=== PATIENT | female | born 1935 | race Caucasian/White ===

== ENCOUNTER 2018-01-10 22:08 | Inpatient (IN) | payer MEDICARE ==
[~2018-01-10] VITALS: Ht 162.6 cm; Wt 58.4 kg
[~2018-01-10 22:08] MED LIST: ALBU8.5H8 INH; ALPR-624 PO; AMIO200T40 PO; APIX5TAB3 PO; FLUT1DIS4 INH; FURO40TA4 PO; GABA-338 PO; HYDR-3686 PO; LACT1CAP26 PO; LISI-222 PO; METO25TA6 PO; NITR0.4T48 SL; NORCO10T PO; OMEP-84 PO; SPIIN INH; ZOC40T PO
[2018-01-10] MEDS ORDERED: HYDROcodone/acetaminophen 10/325mg tab PO ONE (23:00)
[2018-01-10 23:25] LABS: BASOPHILS # (AUTO) 0.1 X10'3 (0-0.2); BASOPHILS % (AUTO) 0.4 % (0-1); EOSINOPHILS % (AUTO) 0 % (0-6); HEMATOCRIT 29.5 % (35.0-45.0); HEMOGLOBIN 9.6 g/dl (12.0-16.0); LYMPHOCYTES # (AUTO) 0.5 X10'3 (1.1-4.8); LYMPHOCYTES % (AUTO) 2.7 % (21-51); MEAN CORPUSCULAR HEMOGLOBIN 30.8 PG (27.0-31.0); MEAN CORPUSCULAR HGB CONC 32.4 % (33.0-36.5); MEAN CORPUSCULAR VOLUME 94.9 FL (78-98); MEAN PLATELET VOLUME 7.9 FL (7.4-10.4); MONOCYTES # (AUTO) 0.6 X10'3 (0-0.9); MONOCYTES % (AUTO) 3.5 % (2-12); NEUTROPHILS % (AUTO) 93.4 % (42-75); PLATELET COUNT 623 X10'3 (140-440); RED BLOOD COUNT 3.11 X10'6 (4.20-5.60); RED CELL DISTRIBUTION WIDTH 15.2 % (11.5-14.5); WHITE BLOOD COUNT 17.1 X10'3 (4.5-11.0)
[2018-01-10 23:36] LABS: ALANINE AMINOTRANSFERASE 172 U/L (12-78); ALBUMIN 2.9 G/DL (3.4-5.0); ALBUMIN/GLOBULIN RATIO 0.8 (1.1-1.5); ALKALINE PHOSPHATASE 145 IU/L (46-116); ANION GAP 7 (8-16); ASPARTATE AMINO TRANSFERASE 110 U/L (10-37); BILIRUBIN,TOTAL 0.4 MG/DL (0.1-1.0); BLOOD UREA NITROGEN 29 MG/DL (7-18); BUN/CREATININE RATIO 14.9 (6.6-38.0); CALCIUM 9.3 MG/DL (8.5-10.1); CHLORIDE 98 MMOL/L (99-107); CREATININE 1.95 MG/DL (0.40-0.90); GLUCOSE 134 MG/DL (70-104); MAGNESIUM 1.8 MG/DL (1.5-2.4); POTASSIUM 3.3 MMOL/L (3.5-5.1); SODIUM 136 MMOL/L (135-145); TOTAL CARBON DIOXIDE 30.8 MMOL/L (24-32); TOTAL PROTEIN 6.7 G/DL (6.4-8.2); eGFR 25 ML/MIN
[2018-01-10 23:38] LABS: PARTIAL THROMBOPLASTIN TIME 27 SECONDS (22-32); PROTHROMBIN TIME 10.3 SECONDS (9.0-12.0)
[2018-01-11] VITALS (7 sets, daily range): BP systolic 91–121; BP diastolic 30–72
[2018-01-11] MEDS ORDERED: levoFLOXACIN-Levaquin 500mg/D5 100 ML IV ONE (00:10)
[2018-01-11] MEDS ORDERED: normal saline 1000ML IV soln IVB ONE (00:35)
[2018-01-11] MEDS ORDERED: METO-539 PO (00:53)
[2018-01-11] MEDS ORDERED: HYDR-3686 PO (00:53)
[2018-01-11] MEDS ORDERED: NITR1PAT25 TD (00:53)
[2018-01-11] MEDS ORDERED: POTA10CA44 PO (00:53)
[2018-01-11] MEDS ORDERED: DOCU100C41 PO (00:53)
[2018-01-11] MEDS ORDERED: CLOP75TA15 PO (00:53)
[2018-01-11] MEDS ORDERED: GABA-534 PO (00:53)
[2018-01-11] MEDS ORDERED: FERR325T28 PO (00:53)
[2018-01-11 00:55] LABS: TROPONIN I < 0.04 NG/ML (0.0-0.05)
[2018-01-11] MEDS ORDERED: acetaminophen 325mg tablet PO PRN (01:20)
[2018-01-11] MEDS ORDERED: mag hydrox/Alum hydrox/simeth 30ml oral suspension PO PRN ×2 (01:20→12:00)
[2018-01-11] MEDS ORDERED: ondansetron/PF 4mg/2ml inj IV PRN (01:20)
[2018-01-11] MEDS ORDERED: morphine 2 MG/ML inj. syringe IV PRN ×2 (01:20)
[2018-01-11] MEDS ORDERED: magnesium hydroxide 30ml (MOM) UD suspension PO PRN (01:20)
[2018-01-11] MEDS: pantoprazole 40mg Tablet.DR PO SCH (07:45)
[2018-01-11] MEDS: clopidogrel 75mg tablet PO SCH (07:45)
[2018-01-11] MEDS: metoprolol tartrate 12.5mg (1/2 tablet) PO SCH (07:46)
[2018-01-11] MEDS: heparin, porcine 5000 units/ml vial SQ SCH ×2 (07:46→21:32)
[2018-01-11] MEDS: gabapentin 400mg capsule PO SCH ×2 (07:46→16:20)
[2018-01-11] MEDS ORDERED: lisinopril 5mg tablet PO SCH (08:00)
[2018-01-11] MEDS ORDERED: furosemide 40mg tablet PO SCH (08:00)
[2018-01-11] MEDS ORDERED: potassium Cl 20 mEq SR tablet PO SCH (08:00)
[2018-01-11] MEDS ORDERED: atorvastatin 20mg tablet PO SCH (08:00)
[2018-01-11] MEDS ORDERED: amiodarone 200mg tablet PO SCH (08:00)
[2018-01-11] MEDS: nitroGLYCERIN 0.1mg/hour patch TD SCH (08:00)
[2018-01-11 10:17] LABS: BASOPHILS % (AUTO) 0.1 % (0-1); EOSINOPHILS # (AUTO) 0.2 X10'3 (0-0.9); EOSINOPHILS % (AUTO) 2.2 % (0-6); HEMATOCRIT 25.6 % (35.0-45.0); HEMOGLOBIN 8.1 g/dl (12.0-16.0); LYMPHOCYTES # (AUTO) 0.5 X10'3 (1.1-4.8); LYMPHOCYTES % (AUTO) 4.9 % (21-51); MEAN CORPUSCULAR HGB CONC 31.6 % (33.0-36.5); MEAN CORPUSCULAR VOLUME 94.9 FL (78-98); MEAN PLATELET VOLUME 7.9 FL (7.4-10.4); MONOCYTES # (AUTO) 0.5 X10'3 (0-0.9); MONOCYTES % (AUTO) 5.3 % (2-12); NEUTROPHILS # (AUTO) 8.8 X10'3 (1.8-7.7); NEUTROPHILS % (AUTO) 87.5 % (42-75); PLATELET COUNT 501 X10'3 (140-440); RED CELL DISTRIBUTION WIDTH 15.6 % (11.5-14.5); WHITE BLOOD COUNT 10.1 X10'3 (4.5-11.0)
[2018-01-11 10:38] LABS: ALANINE AMINOTRANSFERASE 154 U/L (12-78); ALBUMIN 2.3 G/DL (3.4-5.0); ALBUMIN/GLOBULIN RATIO 0.7 (1.1-1.5); ALKALINE PHOSPHATASE 115 IU/L (46-116); ANION GAP 8 (8-16); ASPARTATE AMINO TRANSFERASE 112 U/L (10-37); BILIRUBIN,TOTAL 0.3 MG/DL (0.1-1.0); BLOOD UREA NITROGEN 27 MG/DL (7-18); BUN/CREATININE RATIO 14.2 (6.6-38.0); CALCIUM 8.7 MG/DL (8.5-10.1); CHLORIDE 101 MMOL/L (99-107); GLUCOSE 110 MG/DL (70-104); POTASSIUM 3.5 MMOL/L (3.5-5.1); SODIUM 138 MMOL/L (135-145); TOTAL CARBON DIOXIDE 29.1 MMOL/L (24-32); TOTAL PROTEIN 5.5 G/DL (6.4-8.2); eGFR 25 ML/MIN
[2018-01-11] MEDS ORDERED: normal saline 500ml IV soln 1,000 ML IV ONE (11:10)
[2018-01-11] MEDS: potassium Cl 20mEq in NS 1,000 ML IV SCH (16:21)
[2018-01-11] MEDS: HYDROcodone/acetaminophen 10/325mg tab PO PRN (17:31)
[2018-01-11] MEDS: ipratropium/albuterol 3ml nebule NEB SCH ×2 (20:17→23:24)
[2018-01-12] VITALS: BP 105/39
[2018-01-12] MEDS: gabapentin 400mg capsule PO SCH ×2 (00:28→08:17)
[2018-01-12] MEDS: levoFLOXACIN-Levaquin 250mg/D5 100 ML IV SCH (02:49)
[2018-01-12] MEDS: ipratropium/albuterol 3ml nebule NEB SCH ×6 (03:39→23:11)
[2018-01-12] MEDS: potassium Cl 20mEq in NS 1,000 ML IV SCH ×3 (04:20→20:57)
[2018-01-12 06:03] LABS: BASOPHILS % (AUTO) 0.1 % (0-1); EOSINOPHILS # (AUTO) 0.2 X10'3 (0-0.9); EOSINOPHILS % (AUTO) 1.7 % (0-6); HEMATOCRIT 26.5 % (35.0-45.0); HEMOGLOBIN 8.4 g/dl (12.0-16.0); LYMPHOCYTES # (AUTO) 0.3 X10'3 (1.1-4.8); LYMPHOCYTES % (AUTO) 3.2 % (21-51); MEAN CORPUSCULAR HEMOGLOBIN 30.1 PG (27.0-31.0); MEAN CORPUSCULAR HGB CONC 31.9 % (33.0-36.5); MEAN CORPUSCULAR VOLUME 94.5 FL (78-98); MEAN PLATELET VOLUME 8.8 FL (7.4-10.4); MONOCYTES # (AUTO) 0.7 X10'3 (0-0.9); MONOCYTES % (AUTO) 6.6 % (2-12); NEUTROPHILS # (AUTO) 9.2 X10'3 (1.8-7.7); NEUTROPHILS % (AUTO) 88.4 % (42-75); PLATELET COUNT 422 X10'3 (140-440); RED CELL DISTRIBUTION WIDTH 15.6 % (11.5-14.5); WHITE BLOOD COUNT 10.4 X10'3 (4.5-11.0)
[2018-01-12 06:31] LABS: ALANINE AMINOTRANSFERASE 245 U/L (12-78); ALBUMIN 2.1 G/DL (3.4-5.0); ALBUMIN/GLOBULIN RATIO 0.6 (1.1-1.5); ALKALINE PHOSPHATASE 124 IU/L (46-116); ANION GAP 9 (8-16); ASPARTATE AMINO TRANSFERASE 217 U/L (10-37); BILIRUBIN,TOTAL 0.2 MG/DL (0.1-1.0); BLOOD UREA NITROGEN 30 MG/DL (7-18); BUN/CREATININE RATIO 14.3 (6.6-38.0); CALCIUM 8.8 MG/DL (8.5-10.1); CHLORIDE 103 MMOL/L (99-107); GLUCOSE 126 MG/DL (70-104); POTASSIUM 3.5 MMOL/L (3.5-5.1); SODIUM 139 MMOL/L (135-145); TOTAL CARBON DIOXIDE 27.3 MMOL/L (24-32); TOTAL PROTEIN 5.4 G/DL (6.4-8.2); TROPONIN I < 0.04 NG/ML (0.0-0.05); eGFR 23 ML/MIN
[2018-01-12 08:00] VITALS: BP 102/39
[2018-01-12] MEDS: nitroGLYCERIN 0.1mg/hour patch TD SCH (08:00)
[2018-01-12] MEDS ORDERED: amiodarone 200mg tablet PO SCH (08:00)
[2018-01-12] MEDS: pantoprazole 40mg Tablet.DR PO SCH (08:17)
[2018-01-12] MEDS: metoprolol tartrate 12.5mg (1/2 tablet) PO SCH (08:17)
[2018-01-12] MEDS: heparin, porcine 5000 units/ml vial SQ SCH ×2 (08:18→20:28)
[2018-01-12] MEDS: clopidogrel 75mg tablet PO SCH (08:18)
[2018-01-12] MEDS: HYDROcodone/acetaminophen 10/325mg tab PO PRN (08:21)
[2018-01-12 08:30] VITALS: BP 73/34
[2018-01-12] MEDS ORDERED: normal saline 500ml IV soln 1,000 ML IV ONE (09:25)
[2018-01-12] MEDS ORDERED: nitroGLYCERIN 0.4mg SUBLingual tab SL PRN (10:30)
[2018-01-12 11:51] VITALS: BP 106/35
[2018-01-12] MEDS: HYDROcodone/acetaminophen 10/325mg tab PO SCH ×2 (13:10→20:28)
[2018-01-12] MEDS ORDERED: gabapentin 300mg capsule PO SCH (16:06)
[2018-01-12 20:00] VITALS: BP 95/35
[2018-01-12] MEDS: carVEDilol 3.125mg tablet PO SCH (20:00)
[2018-01-12] MEDS: docusate sod 250mg capsule PO SCH (20:27)
[2018-01-13 00:20] VITALS: BP 103/35
[2018-01-13] MEDS: ipratropium/albuterol 3ml nebule NEB SCH ×3 (03:00→23:50)
[2018-01-13 05:05] LABS: BASOPHILS % (AUTO) 0.1 % (0-1); EOSINOPHILS % (AUTO) 0 % (0-6); HEMATOCRIT 27.3 % (35.0-45.0); HEMOGLOBIN 8.7 g/dl (12.0-16.0); LYMPHOCYTES # (AUTO) 0.4 X10'3 (1.1-4.8); LYMPHOCYTES % (AUTO) 2.5 % (21-51); MEAN CORPUSCULAR HGB CONC 31.7 % (33.0-36.5); MEAN CORPUSCULAR VOLUME 94.7 FL (78-98); MEAN PLATELET VOLUME 8.6 FL (7.4-10.4); MONOCYTES # (AUTO) 0.9 X10'3 (0-0.9); MONOCYTES % (AUTO) 4.9 % (2-12); NEUTROPHILS % (AUTO) 92.5 % (42-75); PLATELET COUNT 463 X10'3 (140-440); RED BLOOD COUNT 2.89 X10'6 (4.20-5.60); RED CELL DISTRIBUTION WIDTH 16.1 % (11.5-14.5); WHITE BLOOD COUNT 17.3 X10'3 (4.5-11.0)
[2018-01-13 05:27] LABS: ALANINE AMINOTRANSFERASE 256 U/L (12-78); ALBUMIN/GLOBULIN RATIO 0.6 (1.1-1.5); ALKALINE PHOSPHATASE 130 IU/L (46-116); ANION GAP 9 (8-16); ASPARTATE AMINO TRANSFERASE 207 U/L (10-37); BILIRUBIN,TOTAL 0.4 MG/DL (0.1-1.0); BLOOD UREA NITROGEN 22 MG/DL (7-18); BUN/CREATININE RATIO 15.5 (6.6-38.0); CALCIUM 8.7 MG/DL (8.5-10.1); CHLORIDE 104 MMOL/L (99-107); CREATININE 1.42 MG/DL (0.40-0.90); GLUCOSE 111 MG/DL (70-104); POTASSIUM 4.7 MMOL/L (3.5-5.1); SODIUM 138 MMOL/L (135-145); TOTAL CARBON DIOXIDE 25.1 MMOL/L (24-32); TOTAL PROTEIN 5.4 G/DL (6.4-8.2); eGFR 36 ML/MIN
[2018-01-13] MEDS: potassium Cl 20mEq in NS 1,000 ML IV SCH ×2 (06:09→16:52)
[2018-01-13 07:00] VITALS: BP 114/42
[2018-01-13] MEDS: carVEDilol 3.125mg tablet PO SCH ×2 (08:00→21:03)
[2018-01-13] MEDS: pantoprazole 40mg Tablet.DR PO SCH (08:24)
[2018-01-13] MEDS: HYDROcodone/acetaminophen 10/325mg tab PO SCH ×4 (08:25→20:57)
[2018-01-13] MEDS: gabapentin 300mg capsule PO SCH (08:25)
[2018-01-13] MEDS: clopidogrel 75mg tablet PO SCH (08:25)
[2018-01-13] MEDS: heparin, porcine 5000 units/ml vial SQ SCH ×2 (08:26→20:55)
[2018-01-13 09:58] LABS: BASOPHILS % (AUTO) 0 % (0-1); EOSINOPHILS % (AUTO) 0 % (0-6); HEMATOCRIT 27.3 % (35.0-45.0); HEMOGLOBIN 8.7 g/dl (12.0-16.0); LYMPHOCYTES # (AUTO) 0.4 X10'3 (1.1-4.8); MEAN CORPUSCULAR HEMOGLOBIN 30.3 PG (27.0-31.0); MEAN CORPUSCULAR VOLUME 94.9 FL (78-98); MONOCYTES # (AUTO) 0.9 X10'3 (0-0.9); MONOCYTES % (AUTO) 5.2 % (2-12); NEUTROPHILS % (AUTO) 92.8 % (42-75); PLATELET COUNT 484 X10'3 (140-440); RED BLOOD COUNT 2.88 X10'6 (4.20-5.60); WHITE BLOOD COUNT 18.3 X10'3 (4.5-11.0)
[2018-01-13 11:00] VITALS: BP 114/39
[2018-01-13] MEDS: lactose-reduced food (Ensure Enlive) - 237ml bottle PO SCH ×2 (13:00→18:46)
[2018-01-13] MEDS: DOXYCYCLINE 100MG CAPSULE PO SCH ×2 (15:57→17:30)
[2018-01-13 18:50] LABS: CLARITY,URINE CLEAR (Clear); COLOR,URINE YELLOW (Yellow); GLUCOSE, URINE NEGATIVE (Neg); KETONES,URINE NEGATIVE (Neg); LEUKOCYTE ESTERASE ,URINE NEGATIVE (Neg); NITRITES, URINE NEGATIVE (Neg); OCCULT BLOOD,URINE LARGE (Neg); PROTEIN,URINE NEGATIVE (Neg); UROBILINOGEN,URINE 0.2 E.U/dL (0.2-1.0)
[2018-01-13 18:51] LABS: UA COLLECTION TYPE VOIDED
[2018-01-13 19:00] VITALS: BP 103/39
[2018-01-13 19:18] LABS: BACTERIA,URINE NONE SEEN /HPF (Neg); MUCUS STRANDS NONE SEEN /LPF (Neg); SQUAMOUS EPITHELIAL CELL,UR NONE SEEN /LPF (FEW); TRANSITIONAL EPI CELLS,URINE FEW /HPF; WBC,URINE 0-4 /HPF (0-4)
[2018-01-13] MEDS: docusate sod 250mg capsule PO SCH (20:56)
[2018-01-14] VITALS: BP 118/43
[2018-01-14] MEDS: levoFLOXACIN-Levaquin 250mg/D5 100 ML IV SCH (02:26)
[2018-01-14] MEDS: ipratropium/albuterol 3ml nebule NEB SCH ×3 (03:00→11:30)
[2018-01-14 05:40] LABS: ALANINE AMINOTRANSFERASE 175 U/L (12-78); ALBUMIN 1.7 G/DL (3.4-5.0); ALBUMIN/GLOBULIN RATIO 0.5 (1.1-1.5); ALKALINE PHOSPHATASE 114 IU/L (46-116); ANION GAP 7 (8-16); ASPARTATE AMINO TRANSFERASE 75 U/L (10-37); BILIRUBIN,TOTAL 0.2 MG/DL (0.1-1.0); BLOOD UREA NITROGEN 20 MG/DL (7-18); BUN/CREATININE RATIO 18.7 (6.6-38.0); CHLORIDE 108 MMOL/L (99-107); CREATININE 1.07 MG/DL (0.40-0.90); GLUCOSE 110 MG/DL (70-104); POTASSIUM 5.2 MMOL/L (3.5-5.1); SODIUM 140 MMOL/L (135-145); TOTAL CARBON DIOXIDE 25.1 MMOL/L (24-32); TOTAL PROTEIN 5.2 G/DL (6.4-8.2); eGFR 49 ML/MIN
[2018-01-14 05:48] LABS: BASOPHILS % (AUTO) 0 % (0-1); EOSINOPHILS % (AUTO) 0 % (0-6); HEMOGLOBIN 8.1 g/dl (12.0-16.0); LYMPHOCYTES # (AUTO) 0.5 X10'3 (1.1-4.8); LYMPHOCYTES % (AUTO) 3.3 % (21-51); MEAN CORPUSCULAR HEMOGLOBIN 29.8 PG (27.0-31.0); MEAN CORPUSCULAR HGB CONC 31.3 % (33.0-36.5); MEAN PLATELET VOLUME 8.9 FL (7.4-10.4); MONOCYTES # (AUTO) 0.9 X10'3 (0-0.9); MONOCYTES % (AUTO) 6.1 % (2-12); NEUTROPHILS % (AUTO) 90.6 % (42-75); PLATELET COUNT 501 X10'3 (140-440); RED BLOOD COUNT 2.74 X10'6 (4.20-5.60); RED CELL DISTRIBUTION WIDTH 16.1 % (11.5-14.5); WHITE BLOOD COUNT 15.5 X10'3 (4.5-11.0)
[2018-01-14 07:00] VITALS: BP 106/39
[2018-01-14] MEDS: HYDROcodone/acetaminophen 10/325mg tab PO SCH ×2 (07:06→13:54)
[2018-01-14 07:48] LABS: ANISOCYTOSIS 1+; HYPOCHROMASIA 1+; PLATELET ESTIMATE INCREASED; POLYCHROMASIA 1+
[2018-01-14 07:49] LABS: POIKILOCYTOSIS FEW; TARGET CELLS FEW
[2018-01-14] MEDS: heparin, porcine 5000 units/ml vial SQ SCH (08:24)
[2018-01-14] MEDS: gabapentin 300mg capsule PO SCH (08:24)
[2018-01-14] MEDS: clopidogrel 75mg tablet PO SCH (08:24)
[2018-01-14] MEDS: carVEDilol 3.125mg tablet PO SCH (08:24)
[2018-01-14] MEDS: pantoprazole 40mg Tablet.DR PO SCH (08:25)
[2018-01-14] MEDS: DOXYCYCLINE 100MG CAPSULE PO SCH (08:25)
[2018-01-14] MEDS: lactose-reduced food (Ensure Enlive) - 237ml bottle PO SCH ×2 (08:25→13:55)
[2018-01-14] MEDS ORDERED: furosemide 40mg tablet PO SCH (10:20)
[2018-01-14] MEDS ORDERED: sodium bicarbonate (8.4%) 1 mEq/ml syringe IV ONE (11:35)
[2018-01-14 13:07] VITALS: BP 116/37
== END 2018-01-14 14:15 | DRG 682 ==
LOC: ER 22:09 → ED HOLD 01-11 01:19 → SUR 3N 01-11 01:53
PROVIDERS: ADMIT Internal Medicine; ATTEND Internal Medicine
DX: N17.9 Acute kidney failure, unspecified (principal); J18.1 Lobar pneumonia, unspecified organism; J44.1 Chronic obstructive pulmonary disease with (acute) exacerbation; E44.0 Moderate protein-calorie malnutrition; J44.0 Chronic obstructive pulmonary disease with (acute) lower respiratory infection; E78.00 Pure hypercholesterolemia, unspecified; E78.5 Hyperlipidemia, unspecified; E86.0 Dehydration; F41.9 Anxiety disorder, unspecified; I11.0 Hypertensive heart disease with heart failure; I25.10 Atherosclerotic heart disease of native coronary artery without angina pectoris; I35.0 Nonrheumatic aortic (valve) stenosis; Z60.2 Problems related to living alone; I48.0 Paroxysmal atrial fibrillation; I50.9 Heart failure, unspecified; I73.9 Peripheral vascular disease, unspecified; K21.9 Gastro-esophageal reflux disease without esophagitis; Z96.611 Presence of right artificial shoulder joint; G89.29 Other chronic pain; I95.9 Hypotension, unspecified; M25.551 Pain in right hip; R74.0 Nonspecific elevation of levels of transaminase and lactic acid dehydrogenase [LDH]; R94.5 Abnormal results of liver function studies; S32.10XG Unspecified fracture of sacrum, subsequent encounter for fracture with delayed healing; S32.502 Unspecified fracture of left pubis; Z90.710 Acquired absence of both cervix and uterus; Z95.820 Peripheral vascular angioplasty status with implants and grafts; Z88.0 Allergy status to penicillin; Z88.2 Allergy status to sulfonamides; Z88.8 Allergy status to other drugs, medicaments and biological substances; Z79.899 Other long term (current) drug therapy; Z68.22 Body mass index [BMI] 22.0-22.9, adult
CPT/HCPCS: 36415; 71045; 72192; 73501; 80053; 81001; 83735; 83880; 84132; 84145; 84484; 85025; 85610; 85730; 87070; 92616; 93005; 93306; 94640; 94760; 97110; 97162; 97530; 99285; G0378; J1644; J1956; J2405; J7030

== ENCOUNTER 2018-06-20 09:49 | Outpatient (CLI) | payer MEDICARE ==
[~2018-06-20 09:49] MED LIST changes: -ALBU8.5H8 INH; -ALPR-624 PO; -APIX5TAB3 PO; +CLOP75TA15 PO; +DOCU100C41 PO; +FERR325T28 PO; -FLUT1DIS4 INH; -GABA-338 PO; +GABA-534 PO; +METO-539 PO; -METO25TA6 PO; -NITR0.4T48 SL; +NITR1PAT25 TD; -NORCO10T PO; +POTA10CA44 PO; -SPIIN INH
[2018-06-20 10:26] LABS: TOTAL HEMOGLOBIN 9.9 G/dl (12.0-16.0)
[2018-06-20] MEDS ORDERED: albuterol 2.5 MG/3 ML nebule NEB ONE (10:40)
== END 2018-06-20 23:59 | disposition home or self-care (01) ==
LOC: RT 09:49
PROVIDERS: ATTEND Internal Medicine Cardiovascular Disease
DX: R94.2 Abnormal results of pulmonary function studies (principal); I10 Essential (primary) hypertension; J44.9 Chronic obstructive pulmonary disease, unspecified; Z79.899 Other long term (current) drug therapy
CPT/HCPCS: 85018; 94060; 94727; 94729; 94760

== ENCOUNTER 2019-07-19 23:22 | Emergency (ER) | payer MEDICARE ==
[~2019-07-19] VITALS: Ht 162.6 cm; Wt 59.1 kg
[~2019-07-19 23:22] MED LIST changes: -AMIO200T40 PO; +AMIO200T61 PO; +LIDOcaine 1% w/EPI 1:100,000 30ml vial (MDV) ONE
[2019-07-20] MEDS ORDERED: ondansetron/PF 4mg/2ml inj IV ONE ×2 (00:05→02:00)
[2019-07-20] MEDS ORDERED: tranexamic acid 1gm/0.7% sal. 100 ML IV ONE (00:05)
[2019-07-20] MEDS ORDERED: tranexamic acid 100mg/ml inj. IV ONE (00:05)
[2019-07-20] MEDS ORDERED: normal saline 1000ml 1,000 ML IV ONE (00:05)
[2019-07-20] MEDS ORDERED: oxymetazoline 15 ML nasal spray NS ONE (00:10)
[2019-07-20] MEDS ORDERED: tranexamic acid 100mg/ml inj. TP ONE (00:25)
[2019-07-20 00:36] VITALS: BP 165/69
[2019-07-20] MEDS ORDERED: LIDOcaine Viscous 15ml cup MM ONE (01:05)
[2019-07-20] MEDS ORDERED: proCHLORperazine 10 MG/2 ml inj IV ONE (02:25)
[2019-07-20] MEDS ORDERED: CLIN150C8 PO (02:25)
--- NOTE | 2019-07-20 02:47 | NUR ---
CALL TO [facility] [phone], FOR TRANSPORT HOME. NO ANSWER, MESSAGE LEFT.
== END 2019-07-20 04:03 | disposition home or self-care (01) ==
LOC: ER 23:23
DX: R04.0 Epistaxis (principal); I11.0 Hypertensive heart disease with heart failure; I50.9 Heart failure, unspecified; E78.00 Pure hypercholesterolemia, unspecified; J44.9 Chronic obstructive pulmonary disease, unspecified; G89.29 Other chronic pain; F41.9 Anxiety disorder, unspecified; Z90.710 Acquired absence of both cervix and uterus; Z98.890 Other specified postprocedural states; Z72.89 Other problems related to lifestyle; Z60.2 Problems related to living alone; Z88.1 Allergy status to other antibiotic agents; Z88.0 Allergy status to penicillin; Z88.2 Allergy status to sulfonamides; Z79.2 Long term (current) use of antibiotics; Z79.899 Other long term (current) drug therapy
CPT/HCPCS: 30901; 96365; 96375; 99284; J0780; J2405; J7030; 30905

== ENCOUNTER 2019-07-23 11:14 | Emergency (ER) | payer MEDICARE ==
[~2019-07-23] VITALS: Ht 160 cm; Wt 59.1 kg
[~2019-07-23 11:14] MED LIST changes: +CLIN150C8 PO; -LIDOcaine 1% w/EPI 1:100,000 30ml vial (MDV) ONE
[2019-07-23 11:46] VITALS: BP 180/57
--- NOTE | 2019-07-23 11:53 | NUR ---
PATIENT HERE TO HAVE RHINO ROCKET REMOVED FROM LEFT NARIS. HAD BLOODY NOSE ON MONDAY AMIE AND IT WAS PUT IN HERE IN THE ER. NO BLEEDING NOTED AT PRESENT.
== END 2019-07-23 12:12 | disposition home or self-care (01) ==
LOC: ER 11:15
DX: R04.0 Epistaxis (principal); I50.9 Heart failure, unspecified; E78.00 Pure hypercholesterolemia, unspecified; I11.0 Hypertensive heart disease with heart failure; J44.9 Chronic obstructive pulmonary disease, unspecified; G89.29 Other chronic pain; F41.9 Anxiety disorder, unspecified; Z90.710 Acquired absence of both cervix and uterus; Z48.00 Encounter for change or removal of nonsurgical wound dressing; Z98.890 Other specified postprocedural states; Z72.89 Other problems related to lifestyle; Z60.2 Problems related to living alone; Z88.0 Allergy status to penicillin; Z88.2 Allergy status to sulfonamides; Z79.899 Other long term (current) drug therapy
CPT/HCPCS: 99281

== ENCOUNTER 2020-04-01 11:26 | Outpatient (CLI) | payer MEDICARE ==
[~2020-04-01] VITALS: Ht 160 cm; Wt 59.0 kg
[2020-04-01 12:43] LABS: BASOPHILS # (AUTO) 0.1 X10'3 (0-0.2); BASOPHILS % (AUTO) 1.3 % (0-1); EOSINOPHILS % (AUTO) 1.1 % (0-6); HEMATOCRIT 33.1 % (35.0-45.0); LYMPHOCYTES # (AUTO) 0.4 X10'3 (1.1-4.8); LYMPHOCYTES % (AUTO) 10.5 % (21-51); MEAN CORPUSCULAR HEMOGLOBIN 32.5 PG (27.0-31.0); MEAN CORPUSCULAR HGB CONC 33.1 g/dL (33.0-36.5); MEAN CORPUSCULAR VOLUME 98.2 FL (78-98); MEAN PLATELET VOLUME 8.3 FL (7.4-10.4); MONOCYTES # (AUTO) 0.3 X10'3 (0-0.9); MONOCYTES % (AUTO) 8.1 % (2-12); NEUTROPHILS # (AUTO) 3.2 X10'3 (1.8-7.7); PLATELET COUNT 336 X10'3 (140-440); RED BLOOD COUNT 3.37 X10'6 (4.20-5.60); RED CELL DISTRIBUTION WIDTH 13.5 % (11.5-14.5); WHITE BLOOD COUNT 4.1 X10'3 (4.5-11.0)
[2020-04-01 12:52] LABS: PARTIAL THROMBOPLASTIN TIME 26 SECONDS (22-32)
[2020-04-01 12:57] LABS: ALANINE AMINOTRANSFERASE 20 U/L (12-78); ALBUMIN 3.5 G/DL (3.4-5.0); ALKALINE PHOSPHATASE 93 IU/L (46-116); ANION GAP 9 (8-16); ASPARTATE AMINO TRANSFERASE 21 U/L (10-37); BILIRUBIN,TOTAL 0.3 MG/DL (0.1-1.0); BLOOD UREA NITROGEN 20 MG/DL (7-18); CALCIUM 9.4 MG/DL (8.5-10.1); CHLORIDE 102 MMOL/L (99-107); GLUCOSE 101 MG/DL (70-104); POTASSIUM 3.8 MMOL/L (3.5-5.1); SODIUM 140 MMOL/L (135-145); TOTAL CARBON DIOXIDE 29.5 MMOL/L (24-32); TOTAL PROTEIN 6.9 G/DL (6.4-8.2); eGFR 53 ML/MIN
[2020-04-01 13:23] LABS: ABG BASE EXCESS 2.6 mmol/L (-2.0-2.0); ABG HCO3 27.3 mmol/L (22.0-26.0); ABG OXYGEN SATURATION 94.8 % (94-97); ABG PCO2 (T) 42.1 mmHg (32.0-45.0); ABG PO2 (T) 77.1 mmHg (75.0-100.0); ALLEN'S TEST POSITIVE; FCOHb 0.6 % (0.0-3.9); FMetHb 0.1 % (0.0-1.5); FO2Hb 94.1 % (94-97); TOTAL HEMOGLOBIN 11.8 G/dl (12.0-16.0)
[2020-04-01] MEDS ORDERED: albuterol 2.5 MG/3 ML nebule NEB ONE (13:45)
== END 2020-04-01 23:59 | disposition home or self-care (01) ==
LOC: VAS 11:26
PROVIDERS: ATTEND Internal Medicine Cardiovascular Disease
DX: I35.0 Nonrheumatic aortic (valve) stenosis (principal); I65.23 Occlusion and stenosis of bilateral carotid arteries; K57.30 Diverticulosis of large intestine without perforation or abscess without bleeding; I70.0 Atherosclerosis of aorta; K42.9 Umbilical hernia without obstruction or gangrene; M43.8X6 Other specified deforming dorsopathies, lumbar region; I51.7 Cardiomegaly; J98.11 Atelectasis; J43.9 Emphysema, unspecified; E04.1 Nontoxic single thyroid nodule; R94.2 Abnormal results of pulmonary function studies; Z20.822 Contact with and (suspected) exposure to COVID-19
CPT/HCPCS: 36415; 36600; 71275; 74174; 80053; 82803; 85018; 85025; 85610; 85730; 87635; 93880; 94060; 94727; 94729; 94760; C9803; Q9967

== ENCOUNTER 2020-04-13 08:59 | Day surgery (SDC) | payer MEDICARE ==
[2020-04-13] VITALS (11 sets, daily range): BP systolic 108–152; BP diastolic 39–74
[~2020-04-13] VITALS: Ht 160 cm; Wt 60.0 kg
[2020-04-13] MEDS ORDERED: diphenhydrAMINE 25mg capsule PO PRN (09:45)
[2020-04-13] MEDS ORDERED: normal saline 1,000 ML IV SCH ×2 (09:45→15:10)
[2020-04-13 09:54] LABS: BASOPHILS # (AUTO) 0.1 X10'3 (0-0.2); BASOPHILS % (AUTO) 1.3 % (0-1); EOSINOPHILS # (AUTO) 0.1 X10'3 (0-0.9); EOSINOPHILS % (AUTO) 1.8 % (0-6); HEMATOCRIT 30.2 % (35.0-45.0); HEMOGLOBIN 10.1 g/dl (12.0-16.0); LYMPHOCYTES # (AUTO) 0.4 X10'3 (1.1-4.8); MEAN CORPUSCULAR HEMOGLOBIN 33.5 PG (27.0-31.0); MEAN CORPUSCULAR HGB CONC 33.5 g/dL (33.0-36.5); MEAN PLATELET VOLUME 7.7 FL (7.4-10.4); MONOCYTES # (AUTO) 0.4 X10'3 (0-0.9); NEUTROPHILS # (AUTO) 3.5 X10'3 (1.8-7.7); NEUTROPHILS % (AUTO) 77.9 % (42-75); PLATELET COUNT 378 X10'3 (140-440); RED BLOOD COUNT 3.02 X10'6 (4.20-5.60); RED CELL DISTRIBUTION WIDTH 14.2 % (11.5-14.5); WHITE BLOOD COUNT 4.5 X10'3 (4.5-11.0)
[2020-04-13] MEDS ORDERED: ALPR0.5T8 PO (10:01)
[2020-04-13] MEDS ORDERED: AMIO200T36 PO (10:01)
[2020-04-13 10:31] LABS: ALBUMIN 3.3 G/DL (3.4-5.0); ANION GAP 5 (8-16); BLOOD UREA NITROGEN 17 MG/DL (7-18); BUN/CREATININE RATIO 13.5 (6.6-38.0); CHLORIDE 103 MMOL/L (99-107); CREATININE 1.26 MG/DL (0.40-0.90); GLUCOSE 92 MG/DL (70-104); MAGNESIUM 2.1 MG/DL (1.5-2.4); POTASSIUM 3.8 MMOL/L (3.5-5.1); SODIUM 138 MMOL/L (135-145); eGFR 41 ML/MIN
[2020-04-13] MEDS ORDERED: fentaNYL/PF 50MCG/1 ML 2ML syringe ONE (12:59)
[2020-04-13] MEDS ORDERED: LIDOcaine 1% (10mg/ml)w/preservative injection 20ml MDV ONE (12:59)
[2020-04-13] MEDS ORDERED: midazolam 1 mg/ML 2ml injection ONE (12:59)
[2020-04-13] MEDS ORDERED: iohexol 350MG/ML 100ml bottle IV ONE (13:00)
[2020-04-13] MEDS ORDERED: iohexol 350 MG/ML 50ML vial IV ONE (13:00)
[2020-04-13] MEDS ORDERED: heparin 1,000unit/ml 10ml vial 10 ML ONE (14:14)
[2020-04-13] MEDS ORDERED: HYDROcodone/acetaminophen 10/325mg tab PO PRN (15:10)
[2020-04-13] MEDS ORDERED: HYDROcodone/acetaminophen 5mg/325mg tablet PO PRN (15:10)
[2020-04-13] MEDS ORDERED: ondansetron/PF 4mg/2ml inj IV PRN (15:10)
[2020-04-13] MEDS ORDERED: proCHLORperazine 10 MG/2 ml inj IV PRN (15:10)
== END 2020-04-13 20:20 | disposition home or self-care (01) ==
LOC: SSTAY O 08:59
PROVIDERS: ATTEND Internal Medicine Cardiovascular Disease
DX: R94.39 Abnormal result of other cardiovascular function study (principal); I25.10 Atherosclerotic heart disease of native coronary artery without angina pectoris; I35.0 Nonrheumatic aortic (valve) stenosis; I27.20 Pulmonary hypertension, unspecified; D64.9 Anemia, unspecified; J44.9 Chronic obstructive pulmonary disease, unspecified; I10 Essential (primary) hypertension; E78.5 Hyperlipidemia, unspecified; E11.9 Type 2 diabetes mellitus without complications; Z79.899 Other long term (current) drug therapy; Z79.01 Long term (current) use of anticoagulants; Z88.0 Allergy status to penicillin; Z88.2 Allergy status to sulfonamides; Z88.1 Allergy status to other antibiotic agents; Z87.891 Personal history of nicotine dependence; Z82.49 Family history of ischemic heart disease and other diseases of the circulatory system
CPT/HCPCS: 36415; 80048; 83735; 85025; 85610; 93005; 93460; 99152; 99153; C1760; C1769; C1894; J1644; J2001; J2250; J3010; J7030; Q0163; Q9967; A4620; A6258; C1751

== ENCOUNTER 2020-04-20 12:23 | Outpatient (CLI) | payer MEDICARE ==
[~2020-04-20] VITALS: Ht 160 cm; Wt 59.4 kg
[~2020-04-20 12:23] MED LIST changes: +ALPR0.5T8 PO; +AMIO200T36 PO; -AMIO200T61 PO; -CLIN150C8 PO; -HYDR-3686 PO; -LACT1CAP26 PO; -LISI-222 PO; -POTA10CA44 PO
[2020-04-20] MEDS ORDERED: FLUT1BLS4 INH (13:31)
[2020-04-20 13:58] LABS: CLARITY,URINE CLOUDY (Clear); COLOR,URINE YELLOW (Yellow); GLUCOSE, URINE NEGATIVE (Neg); KETONES,URINE NEGATIVE (Neg); LEUKOCYTE ESTERASE ,URINE LARGE (Neg); NITRITES, URINE NEGATIVE (Neg); OCCULT BLOOD,URINE NEGATIVE (Neg); PH,URINE 7.5 (4.8-8.0); PROTEIN,URINE NEGATIVE (Neg); UROBILINOGEN,URINE 0.2 E.U/dL (0.2-1.0)
[2020-04-20 14:00] LABS: UA COLLECTION TYPE CLN CATCH MIDSTREAM
[2020-04-20 14:06] LABS: BASOPHILS # (AUTO) 0.1 X10'3 (0-0.2); BASOPHILS % (AUTO) 0.7 % (0-1); EOSINOPHILS % (AUTO) 0.6 % (0-6); LYMPHOCYTES # (AUTO) 0.4 X10'3 (1.1-4.8); LYMPHOCYTES % (AUTO) 5.4 % (21-51); MEAN CORPUSCULAR HEMOGLOBIN 33.2 PG (27.0-31.0); MEAN CORPUSCULAR HGB CONC 32.9 g/dL (33.0-36.5); MEAN CORPUSCULAR VOLUME 101.2 FL (78-98); MEAN PLATELET VOLUME 8.1 FL (7.4-10.4); MONOCYTES # (AUTO) 0.5 X10'3 (0-0.9); MONOCYTES % (AUTO) 6.2 % (2-12); NEUTROPHILS # (AUTO) 6.9 X10'3 (1.8-7.7); NEUTROPHILS % (AUTO) 87.1 % (42-75); PRE OP HEMATOCRIT 33.1 % (35.0-45.0); PRE OP PLATELET COUNT 408 X10'3 (140-440); RED BLOOD COUNT 3.27 X10'6 (4.20-5.60); RED CELL DISTRIBUTION WIDTH 14.4 % (11.5-14.5)
[2020-04-20 14:09] LABS: PRE OP HEMOGLOBIN 10.9 g/dL (12.0-16.0)
[2020-04-20 14:17] LABS: PRE OP PROTIME 10.3 SECONDS (9.0-12.0)
[2020-04-20 14:19] LABS: ALBUMIN 3.4 G/DL (3.4-5.0); ALKALINE PHOSPHATASE 107 IU/L (46-116); BLOOD UREA NITROGEN 13 MG/DL (7-18); BUN/CREATININE RATIO 11.7 (6.6-38.0); CALCIUM 9.2 MG/DL (8.5-10.1); CHLORIDE 104 MMOL/L (99-107); CREATININE 1.11 MG/DL (0.40-0.90); PRE OP ALT 19 U/L (30-65); PRE OP ANION GAP 9 (8-16); PRE OP AST 15 U/L (10-37); PRE OP BILIRUB, TOTAL 0.4 MG/DL (0.0-1.0); PRE OP GLUCOSE 94 MG/DL (70-104); PRE OP POTASSIUM 3.8 MMOL/L (3.4-5.1); PRE OP SODIUM 142 MMOL/L (135-145); TOTAL CARBON DIOXIDE 29.1 MMOL/L (24-32); TOTAL PROTEIN 6.9 G/DL (6.4-8.2); eGFR 47 ML/MIN
[2020-04-20 14:34] LABS: SQUAMOUS EPITHELIAL CELL,UR FEW /LPF (FEW)
[2020-04-20 14:35] LABS: BACTERIA,URINE 3+ /HPF (Neg); RBC,URINE 0-2 /HPF (0-2); WBC CLUMPS,URINE MANY /HPF (NEGATIVE); WBC,URINE 50-100 /HPF (0-4)
[2020-04-23] MEDS ORDERED: ringers solution, lacted 1,000 ML IV SCH (05:00)
[2020-04-23] MEDS ORDERED: DOCUMENT DATE & TIME OF BETA-BLOCKER PO ONE (05:30)
[2020-04-23] MEDS ORDERED: vancomycin/NS 1 GM ADD-VANTAGE 250 ML IV ONE (05:30)
[2020-04-23] MEDS ORDERED: famotidine 20mg tablet PO ONE (05:30)
[2020-04-23] MEDS ORDERED: aspirin 325mg tablet PO ONE (05:30)
[2020-04-23] MEDS ORDERED: ondansetron/PF 4mg/2ml inj IV PRN (05:30)
== END 2020-04-20 23:59 | disposition home or self-care (01) ==
LOC: PRE-OP 12:23 → EDSTATUS 04-23 08:30
PROVIDERS: ATTEND Internal Medicine Cardiovascular Disease
DX: Z01.812 Encounter for preprocedural laboratory examination (principal); I35.0 Nonrheumatic aortic (valve) stenosis; I51.7 Cardiomegaly; R94.31 Abnormal electrocardiogram [ECG] [EKG]; Z20.822 Contact with and (suspected) exposure to COVID-19
CPT/HCPCS: 36415; 71046; 80053; 81001; 85025; 85610; 85730; 86885; 86900; 86901; 87077; 87081; 87088; 87186; 93005; U0003; 86920

== ENCOUNTER 2020-06-09 10:40 | Outpatient (CLI) | payer MEDICARE ==
[~2020-06-09 10:40] MED LIST changes: +FLUT1BLS4 INH
== END 2020-06-09 23:59 | disposition home or self-care (01) ==
LOC: CARD DIAG 10:40
PROVIDERS: ATTEND Internal Medicine Cardiovascular Disease
DX: I34.0 Nonrheumatic mitral (valve) insufficiency (principal)
CPT/HCPCS: 93308

== ENCOUNTER 2020-09-30 20:21 | Inpatient (IN) | payer MEDICARE ==
[~2020-09-30] VITALS: Ht 162.6 cm; Wt 60.0 kg
[2020-09-30] MEDS ORDERED: LORazepam 2 mg/ml vial IV ONE (20:25)
[2020-09-30] MEDS ORDERED: normal saline 1000ML IV soln IVB ONE (20:25)
[2020-09-30 20:52] LABS: BASOPHILS % (AUTO) 0.6 % (0-1); EOSINOPHILS % (AUTO) 0.5 % (0-6); HEMATOCRIT 30.9 % (35.0-45.0); HEMOGLOBIN 10.2 g/dl (12.0-16.0); LYMPHOCYTES # (AUTO) 0.8 X10'3 (1.1-4.8); LYMPHOCYTES % (AUTO) 11.7 % (21-51); MEAN CORPUSCULAR HEMOGLOBIN 33.6 PG (27.0-31.0); MEAN CORPUSCULAR VOLUME 101.7 FL (78-98); MEAN PLATELET VOLUME 8.2 FL (7.4-10.4); MONOCYTES # (AUTO) 0.5 X10'3 (0-0.9); MONOCYTES % (AUTO) 6.9 % (2-12); NEUTROPHILS # (AUTO) 5.4 X10'3 (1.8-7.7); NEUTROPHILS % (AUTO) 80.3 % (42-75); PLATELET COUNT 345 X10'3 (140-440); RED BLOOD COUNT 3.04 X10'6 (4.20-5.60); RED CELL DISTRIBUTION WIDTH 15.2 % (11.5-14.5); WHITE BLOOD COUNT 6.8 X10'3 (4.5-11.0)
[2020-09-30 21:00] LABS: ALBUMIN 3.7 G/DL (3.4-5.0); ANION GAP 10 (8-16); BILIRUBIN,TOTAL 0.2 MG/DL (0.1-1.0); BLOOD UREA NITROGEN 16 MG/DL (7-18); BUN/CREATININE RATIO 15.2 (6.6-38.0); CALCIUM 8.9 MG/DL (8.5-10.1); CHLORIDE 105 MMOL/L (99-107); CREATININE 1.05 MG/DL (0.40-0.90); GLUCOSE 106 MG/DL (70-104); POTASSIUM 3.6 MMOL/L (3.5-5.1); SODIUM 140 MMOL/L (135-145); TOTAL CARBON DIOXIDE 24.7 MMOL/L (24-32); TOTAL PROTEIN 6.5 G/DL (6.4-8.2); eGFR 50 ML/MIN
[2020-09-30 21:01] LABS: ALANINE AMINOTRANSFERASE 31 U/L (12-78); ALBUMIN/GLOBULIN RATIO 1.3 (1.1-1.5); ALKALINE PHOSPHATASE 118 IU/L (46-116); ASPARTATE AMINO TRANSFERASE 25 U/L (10-37)
[2020-09-30 21:04] LABS: ETHANOL 0.019 GM/DL (0.0-0.010); TROPONIN I < 0.04 NG/ML (0.0-0.05)
[2020-09-30] MEDS ORDERED: magnesium 4gm in 100ml NS 100 ML IV PRN (21:45)
[2020-09-30] MEDS ORDERED: haloperidol 5mg tablet PO PRN (21:45)
[2020-09-30] MEDS ORDERED: magnesium 2GM in 50ml NS 50 ML IV PRN (21:45)
[2020-09-30] MEDS ORDERED: morphine 2 MG/ML inj. syringe IV PRN (21:45)
[2020-09-30] MEDS ORDERED: haloperidol lactate 5mg/ml inj IM PRN (21:45)
[2020-09-30] MEDS ORDERED: LORazepam 2 mg/ml vial IV PRN (21:45)
[2020-09-30] MEDS ORDERED: potassium Cl 40MEQ/1/2NS 520ml 520 ML IV PRN ×2 (21:45)
[2020-09-30] MEDS ORDERED: acetaminophen 325mg tablet PO PRN (21:45)
[2020-09-30] MEDS ORDERED: ondansetron/PF 4mg/2ml inj IV PRN (21:45)
[2020-09-30] MEDS ORDERED: potassium Cl 20 mEq SR tablet PO PRN ×2 (21:45)
[2020-09-30 21:56] LABS: CLARITY,URINE CLEAR (Clear); COLOR,URINE YELLOW (Yellow); GLUCOSE, URINE NEGATIVE (Neg); KETONES,URINE NEGATIVE (Neg); LEUKOCYTE ESTERASE ,URINE NEGATIVE (Neg); NITRITES, URINE NEGATIVE (Neg); OCCULT BLOOD,URINE NEGATIVE (Neg); PH,URINE 5.5 (4.8-8.0); PROTEIN,URINE NEGATIVE (Neg); UROBILINOGEN,URINE 0.2 E.U/dL (0.2-1.0)
[2020-09-30] MEDS: morphine 2 MG/ML inj. syringe IV PRN (22:08)
[2020-09-30 22:18] LABS: UA COLLECTION TYPE FOLEY CATH
--- NOTE | 2020-10-01 00:14 | NUR ---
PT MOVED FROM BE 9 TO BED 15. VSS. AWAITING HOSPITALIST. MED REC COMPLETED.
--- NOTE | 2020-10-01 00:30 | NUR ---
ALLERGY BAND AND LIMITED CODE BAND PLACED. PT IS A&OX4 AND PAIN IS MINIMAL IF NOT MOVING. PLACED ON SUPP 02, 2 L, SATS DROPPING TO 88% ON RA WHEN SLEEPING. AWAITING IPA
[2020-10-01] MEDS: morphine 2 MG/ML inj. syringe IV PRN ×3 (03:16→13:45)
[2020-10-01 03:51] LABS: BASOPHILS % (AUTO) 0.3 % (0-1); EOSINOPHILS % (AUTO) 0 % (0-6); HEMATOCRIT 27.3 % (35.0-45.0); HEMOGLOBIN 8.8 g/dl (12.0-16.0); LYMPHOCYTES # (AUTO) 0.3 X10'3 (1.1-4.8); LYMPHOCYTES % (AUTO) 3.1 % (21-51); MEAN CORPUSCULAR HGB CONC 32.4 g/dL (33.0-36.5); MEAN CORPUSCULAR VOLUME 101.7 FL (78-98); MEAN PLATELET VOLUME 8.2 FL (7.4-10.4); MONOCYTES # (AUTO) 0.7 X10'3 (0-0.9); MONOCYTES % (AUTO) 6.8 % (2-12); NEUTROPHILS # (AUTO) 9.1 X10'3 (1.8-7.7); NEUTROPHILS % (AUTO) 89.8 % (42-75); PLATELET COUNT 283 X10'3 (140-440); RED BLOOD COUNT 2.68 X10'6 (4.20-5.60); RED CELL DISTRIBUTION WIDTH 15.1 % (11.5-14.5); WHITE BLOOD COUNT 10.1 X10'3 (4.5-11.0)
[2020-10-01 04:12] LABS: ALANINE AMINOTRANSFERASE 33 U/L (12-78); ALBUMIN 3.1 G/DL (3.4-5.0); ALBUMIN/GLOBULIN RATIO 1.1 (1.1-1.5); ALKALINE PHOSPHATASE 94 IU/L (46-116); AMYLASE 36 U/L (25-115); ANION GAP 8 (8-16); ASPARTATE AMINO TRANSFERASE 24 U/L (10-37); BILIRUBIN,TOTAL 0.3 MG/DL (0.1-1.0); BLOOD UREA NITROGEN 17 MG/DL (7-18); BUN/CREATININE RATIO 18.1 (6.6-38.0); CHLORIDE 107 MMOL/L (99-107); CREATININE 0.94 MG/DL (0.40-0.90); GLUCOSE 112 MG/DL (70-104); LIPASE < 50 U/L (73-393); MAGNESIUM 1.9 MG/DL (1.5-2.4); PHOSPHORUS 3.9 MG/DL (2.3-4.5); POTASSIUM 3.7 MMOL/L (3.5-5.1); SODIUM 143 MMOL/L (135-145); TOTAL CARBON DIOXIDE 28.3 MMOL/L (24-32); TOTAL PROTEIN 5.8 G/DL (6.4-8.2); eGFR 57 ML/MIN
[2020-10-01] MEDS: ALPRAZolam 0.25mg tablet PO PRN ×2 (04:52→21:58)
[2020-10-01 07:30] VITALS: BP 126/49
--- NOTE | 2020-10-01 07:30 | NUR ---
Received patient from ED, pt in stable condition.
[2020-10-01] MEDS: K and/or MAG REPLACEMENT MC SCH ×2 (09:32→10:51)
[2020-10-01] MEDS: multivitamins, therapeutics tablet PO SCH ×2 (09:39→09:55)
[2020-10-01] MEDS: docusate sod 100mg capsule PO SCH ×2 (09:40→21:57)
[2020-10-01] MEDS: thiamine 100mg tablet PO SCH ×2 (09:40→09:55)
[2020-10-01] MEDS: gabapentin 400mg capsule PO SCH ×2 (09:40→09:53)
[2020-10-01] MEDS: pantoprazole 40mg Tablet.DR PO SCH ×2 (09:40→09:45)
[2020-10-01] MEDS: folic acid 1mg tablet PO SCH ×2 (09:40→09:55)
[2020-10-01] MEDS: amiodarone 200mg tablet PO SCH ×2 (09:40→09:45)
[2020-10-01] MEDS: nitroGLYCERIN 0.1mg/hour patch TD SCH (09:49)
[2020-10-01] MEDS: ferrous sulfate 325mg tablet PO SCH (09:52)
[2020-10-01 14:00] VITALS: BP 137/40
[2020-10-01] MEDS ORDERED: ondansetron 4mg rapidly disintigrating tab PO PRN (15:15)
[2020-10-01] MEDS: HYDROcodone/acetaminophen 10/325mg tab PO PRN ×2 (17:02→21:59)
[2020-10-01 18:00] VITALS: BP 138/44
--- NOTE | 2020-10-01 18:24 | NUR ---
Problems reprioritized. Patient report given MIKE Sarabia questions answered & plan of care reviewed with .
[2020-10-01] MEDS: atorvastatin 20mg tablet PO SCH (21:58)
[2020-10-01] MEDS: enoxaparin 40mg/0.4ml syringe SQ SCH (21:58)
[2020-10-01] MEDS: metoprolol succinate 25mg (24-HOUR) SR. Tablet PO SCH (21:59)
[2020-10-01 22:00] VITALS: BP 129/43
[2020-10-02] VITALS (20 sets, daily range): BP systolic 95–134; BP diastolic 36–76
--- NOTE | 2020-10-02 00:13 | NUR ---
productive cough. taught splinting chest "It hurts to cough". educated on risk factors with not coughing leading to pneumonia. pt verbalized understanding.
--- NOTE | 2020-10-02 00:30 | NUR ---
pt placed on 3L oxygen to keep sats over 90%. shallow breathing when sleeping. will continue to monitor
[2020-10-02] MEDS: HYDROcodone/acetaminophen 10/325mg tab PO PRN ×3 (03:15→20:27)
--- NOTE | 2020-10-02 06:27 | NUR ---
reported to days. noted pt resting w/o distress. anticipate DCP and SS consult today.
--- NOTE | 2020-10-02 06:42 | NUR ---
Patient in room ORTHO 4020. I have received report from MIKE Sarabia and had the opportunity to ask questions and assume patient care.
[2020-10-02 06:57] LABS: BASOPHILS % (AUTO) 0.5 % (0-1); EOSINOPHILS # (AUTO) 0.1 X10'3 (0-0.9); EOSINOPHILS % (AUTO) 0.8 % (0-6); HEMATOCRIT 25.4 % (35.0-45.0); HEMOGLOBIN 8.3 g/dl (12.0-16.0); LYMPHOCYTES # (AUTO) 0.3 X10'3 (1.1-4.8); MEAN CORPUSCULAR HEMOGLOBIN 33.2 PG (27.0-31.0); MEAN CORPUSCULAR HGB CONC 32.8 g/dL (33.0-36.5); MEAN CORPUSCULAR VOLUME 101.3 FL (78-98); MEAN PLATELET VOLUME 8.5 FL (7.4-10.4); MONOCYTES # (AUTO) 0.7 X10'3 (0-0.9); MONOCYTES % (AUTO) 8.2 % (2-12); NEUTROPHILS # (AUTO) 7.8 X10'3 (1.8-7.7); NEUTROPHILS % (AUTO) 87.5 % (42-75); PLATELET COUNT 245 X10'3 (140-440); RED BLOOD COUNT 2.51 X10'6 (4.20-5.60); RED CELL DISTRIBUTION WIDTH 14.8 % (11.5-14.5); WHITE BLOOD COUNT 8.9 X10'3 (4.5-11.0)
[2020-10-02 07:12] LABS: ALANINE AMINOTRANSFERASE 22 U/L (12-78); ALBUMIN 2.6 G/DL (3.4-5.0); ALKALINE PHOSPHATASE 100 IU/L (46-116); AMYLASE 22 U/L (25-115); ANION GAP 6 (8-16); ASPARTATE AMINO TRANSFERASE 17 U/L (10-37); BILIRUBIN,TOTAL 0.3 MG/DL (0.1-1.0); BLOOD UREA NITROGEN 17 MG/DL (7-18); BUN/CREATININE RATIO 16.3 (6.6-38.0); CALCIUM 8.3 MG/DL (8.5-10.1); CHLORIDE 108 MMOL/L (99-107); CREATININE 1.04 MG/DL (0.40-0.90); GLUCOSE 104 MG/DL (70-104); LIPASE < 50 U/L (73-393); MAGNESIUM 2.1 MG/DL (1.5-2.4); PHOSPHORUS 3.9 MG/DL (2.3-4.5); POTASSIUM 3.9 MMOL/L (3.5-5.1); SODIUM 142 MMOL/L (135-145); TOTAL CARBON DIOXIDE 28.2 MMOL/L (24-32); TOTAL PROTEIN 5.3 G/DL (6.4-8.2); eGFR 51 ML/MIN
[2020-10-02] MEDS: K and/or MAG REPLACEMENT MC SCH ×2 (08:00→20:00)
[2020-10-02] MEDS: ferrous sulfate 325mg tablet PO SCH (08:00)
[2020-10-02] MEDS: folic acid 1mg tablet PO SCH (08:00)
[2020-10-02] MEDS: multivitamins, therapeutics tablet PO SCH (08:00)
[2020-10-02] MEDS: gabapentin 400mg capsule PO SCH (08:00)
[2020-10-02] MEDS: docusate sod 100mg capsule PO SCH ×2 (08:00→20:29)
[2020-10-02] MEDS: thiamine 100mg tablet PO SCH (08:00)
[2020-10-02] MEDS: nitroGLYCERIN 0.1mg/hour patch TD SCH (11:14)
[2020-10-02] MEDS ORDERED: sevoflurane 250ml liquid IH ONE (13:48)
[2020-10-02] MEDS ORDERED: fentaNYL/PF 50MCG/1 ML 2ML syringe ONE (13:51)
[2020-10-02] MEDS ORDERED: clindamycin phosphate 150mg/ml inj. ONE (14:08)
[2020-10-02] MEDS ORDERED: propofol inj 20 ML IV ONE (14:36)
[2020-10-02] MEDS ORDERED: ondansetron/PF 4mg/2ml inj ONE (14:36)
[2020-10-02] MEDS ORDERED: ePHEDrine 50MG/ML INJ. ONE (14:36)
[2020-10-02] MEDS ORDERED: BUPIVAcaine 0.5% inj/PF 30 ML ONE (14:36)
[2020-10-02] MEDS ORDERED: rocuronium 10mg/ml inj IV ONE (14:36)
[2020-10-02] MEDS ORDERED: acetaminophen 1,000mg/100ml IV 100 ML IV ONE (14:36)
[2020-10-02] MEDS ORDERED: sugammadex 200mg/2ml injection IV ONE (14:36)
[2020-10-02] MEDS ORDERED: LIDOcaine 2% (20mg/ml) 5ml vial ONE (14:36)
[2020-10-02] MEDS ORDERED: ondansetron/PF 4mg/2ml inj IV PRN (14:40)
[2020-10-02] MEDS ORDERED: ringers solution, lacted 1,000 ML IV SCH (14:40)
[2020-10-02] MEDS ORDERED: HYDROmorphone/PF 0.2 MG/ML SYRINGE IV PRN ×2 (14:40)
[2020-10-02] MEDS ORDERED: morphine 2 MG/ML inj. syringe IV PRN (14:40)
--- NOTE | 2020-10-02 14:50 | NUR ---
Received from OR via , accompanied by Anesthesiologist and report given by Anesthesiolgist. patient waking up, denies pain, v/s wnl, csm intact, left hip wrap dressing cdi, 20g piv to left arm , f/c draining clear yellow urine.
--- NOTE | 2020-10-02 15:40 | NUR ---
patient a&ox4, , denies pain, v/s wnl, csm intact, left hip wrap dressing cdi, 20g piv to left arm , f/c draining clear yellow urine. patient taken to 4020a with all belongings and hooked up to monitors in room and report given to rn who has taken over patient care and patient also placed back on tele and continous pulse ox.
--- NOTE | 2020-10-02 16:04 | NUR ---
Received report from [facility] in recovery. Pt arrived in stable condition. Denies pain at this time. Will continue to monitor.
--- NOTE | 2020-10-02 16:37 | NUR ---
Page Sent PAGER ID: [phone] MESSAGE: [id number] Regarding [id number] Zora Smalls- No Post op fluids ordered. Recommendations?
--- NOTE | 2020-10-02 18:00 | NUR ---
Patient in room ORTHO 4020. I have received report from Magali MCKEON and had the opportunity to ask questions and assume patient care. Addendum: 10/03/20 at 0058 by Sarah Viera RN Amended: Links added.
--- NOTE | 2020-10-02 18:41 | NUR ---
Problems reprioritized. Patient report given,Sarah, RN questions answered & plan of care reviewed with .
--- NOTE | 2020-10-02 20:00 | NUR ---
Missed to check BS for 2000. Pt. aware. Addendum: 10/03/20 at 0111 by Sarah Viera RN Amended: Links added.
--- NOTE | 2020-10-02 20:27 | NUR ---
Pt. awake A & O at this time with c/opain level of 8/10 medicated with prn pain meds s ordered. Repositioned pt. for comfort. Lt hip with drsg with no visible drainage noted; compression wrap in place at this time. F/c draining to gravity. Call light within reach. Addendum: 10/03/20 at 0108 by Sarah Viera RN Amended: Links added.
[2020-10-02] MEDS: enoxaparin 40mg/0.4ml syringe SQ SCH (20:28)
[2020-10-02] MEDS: diphenhydrAMINE 25mg capsule PO PRN (20:29)
[2020-10-02] MEDS: atorvastatin 20mg tablet PO SCH (20:29)
[2020-10-02] MEDS: metoprolol succinate 25mg (24-HOUR) SR. Tablet PO SCH (20:33)
[2020-10-02] MEDS: clindamycin 600mg/D5W 50ml 50 ML IV SCH (20:37)
[2020-10-02] MEDS ORDERED: LORazepam 1 MG tablet PO PRN (21:45)
[2020-10-02] MEDS ORDERED: LORazepam 2 mg/ml vial IV PRN (21:45)
[2020-10-03] VITALS (17 sets, daily range): BP systolic 91–140; BP diastolic 36–76
[2020-10-03] MEDS: HYDROcodone/acetaminophen 10/325mg tab PO PRN ×3 (00:51→22:05)
[2020-10-03] MEDS: normal saline 1000ml 1,000 ML IV SCH ×2 (00:51→15:18)
--- NOTE | 2020-10-03 02:02 | NUR ---
Forgot to check Pt's BS. Addendum: 10/03/20 at 0203 by Sarah Viera RN Amended: Links added.
[2020-10-03] MEDS: clindamycin 600mg/D5W 50ml 50 ML IV SCH ×3 (03:27→16:15)
[2020-10-03] MEDS: diphenhydrAMINE 25mg capsule PO PRN ×2 (04:29→16:14)
[2020-10-03 06:09] LABS: BASOPHILS % (AUTO) 0.6 % (0-1); EOSINOPHILS % (AUTO) 0.3 % (0-6); LYMPHOCYTES # (AUTO) 0.3 X10'3 (1.1-4.8); LYMPHOCYTES % (AUTO) 4.1 % (21-51); MEAN CORPUSCULAR HEMOGLOBIN 33.6 PG (27.0-31.0); MEAN CORPUSCULAR HGB CONC 32.7 g/dL (33.0-36.5); MEAN CORPUSCULAR VOLUME 102.8 FL (78-98); MEAN PLATELET VOLUME 8.6 FL (7.4-10.4); MONOCYTES # (AUTO) 0.8 X10'3 (0-0.9); MONOCYTES % (AUTO) 12.5 % (2-12); NEUTROPHILS # (AUTO) 5.1 X10'3 (1.8-7.7); NEUTROPHILS % (AUTO) 82.5 % (42-75); PLATELET COUNT 228 X10'3 (140-440); RED BLOOD COUNT 2.04 X10'6 (4.20-5.60); RED CELL DISTRIBUTION WIDTH 14.7 % (11.5-14.5); WHITE BLOOD COUNT 6.2 X10'3 (4.5-11.0)
[2020-10-03 06:12] LABS: HEMATOCRIT 20.9 % (35.0-45.0); HEMOGLOBIN 6.8 g/dl (12.0-16.0)
[2020-10-03 06:26] LABS: ALANINE AMINOTRANSFERASE 24 U/L (12-78); ALBUMIN 2.1 G/DL (3.4-5.0); ALBUMIN/GLOBULIN RATIO 0.7 (1.1-1.5); ALKALINE PHOSPHATASE 95 IU/L (46-116); AMYLASE 17 U/L (25-115); ANION GAP 6 (8-16); ASPARTATE AMINO TRANSFERASE 18 U/L (10-37); BILIRUBIN,TOTAL 0.2 MG/DL (0.1-1.0); BLOOD UREA NITROGEN 20 MG/DL (7-18); BUN/CREATININE RATIO 19.2 (6.6-38.0); CALCIUM 8.1 MG/DL (8.5-10.1); CHLORIDE 108 MMOL/L (99-107); CREATININE 1.04 MG/DL (0.40-0.90); GLUCOSE 116 MG/DL (70-104); LIPASE < 50 U/L (73-393); MAGNESIUM 2.1 MG/DL (1.5-2.4); PHOSPHORUS 4.4 MG/DL (2.3-4.5); POTASSIUM 4.2 MMOL/L (3.5-5.1); SODIUM 141 MMOL/L (135-145); TOTAL CARBON DIOXIDE 26.8 MMOL/L (24-32); eGFR 51 ML/MIN
--- NOTE | 2020-10-03 06:32 | NUR ---
notified day MIKE Brandt of critical H/H - called lab value to Dr. Osuna. will "take a look". pt asymptomatic
[2020-10-03] MEDS: K and/or MAG REPLACEMENT MC SCH ×2 (08:00→20:00)
[2020-10-03] MEDS: folic acid 1mg tablet PO SCH (08:12)
[2020-10-03] MEDS: docusate sod 100mg capsule PO SCH ×2 (08:13→20:08)
[2020-10-03] MEDS: gabapentin 400mg capsule PO SCH (08:13)
[2020-10-03] MEDS: thiamine 100mg tablet PO SCH (08:13)
[2020-10-03] MEDS: multivitamins, therapeutics tablet PO SCH (08:13)
[2020-10-03] MEDS: ferrous sulfate 325mg tablet PO SCH (08:13)
[2020-10-03] MEDS: nitroGLYCERIN 0.1mg/hour patch TD SCH (08:13)
[2020-10-03] MEDS: amiodarone 200mg tablet PO SCH (08:13)
[2020-10-03] MEDS: pantoprazole 40mg Tablet.DR PO SCH (08:13)
[2020-10-03] MEDS: metoprolol succinate 25mg (24-HOUR) SR. Tablet PO SCH (20:08)
[2020-10-03] MEDS: atorvastatin 20mg tablet PO SCH (20:08)
[2020-10-03] MEDS: enoxaparin 40mg/0.4ml syringe SQ SCH (23:22)
[2020-10-04] MEDS: diphenhydrAMINE 25mg capsule PO PRN ×2 (01:12→17:53)
[2020-10-04] MEDS: normal saline 1000ml 1,000 ML IV SCH (03:06)
[2020-10-04] MEDS: HYDROcodone/acetaminophen 10/325mg tab PO PRN ×3 (03:09→23:13)
[2020-10-04 06:00] VITALS: BP 118/52
[2020-10-04 06:03] LABS: BASOPHILS % (AUTO) 0.7 % (0-1); EOSINOPHILS # (AUTO) 0.1 X10'3 (0-0.9); HEMATOCRIT 27.6 % (35.0-45.0); HEMOGLOBIN 9.1 g/dl (12.0-16.0); LYMPHOCYTES # (AUTO) 0.3 X10'3 (1.1-4.8); LYMPHOCYTES % (AUTO) 4.5 % (21-51); MEAN CORPUSCULAR HEMOGLOBIN 31.2 PG (27.0-31.0); MEAN CORPUSCULAR HGB CONC 32.8 g/dL (33.0-36.5); MEAN CORPUSCULAR VOLUME 95.1 FL (78-98); MONOCYTES # (AUTO) 0.9 X10'3 (0-0.9); MONOCYTES % (AUTO) 12.2 % (2-12); NEUTROPHILS # (AUTO) 5.7 X10'3 (1.8-7.7); NEUTROPHILS % (AUTO) 81.6 % (42-75); PLATELET COUNT 230 X10'3 (140-440); RED BLOOD COUNT 2.91 X10'6 (4.20-5.60); RED CELL DISTRIBUTION WIDTH 19.6 % (11.5-14.5)
[2020-10-04 06:27] LABS: ALANINE AMINOTRANSFERASE 20 U/L (12-78); ALBUMIN 1.9 G/DL (3.4-5.0); ALBUMIN/GLOBULIN RATIO 0.6 (1.1-1.5); ALKALINE PHOSPHATASE 84 IU/L (46-116); AMYLASE 17 U/L (25-115); ANION GAP 6 (8-16); ASPARTATE AMINO TRANSFERASE 20 U/L (10-37); BILIRUBIN,TOTAL 0.7 MG/DL (0.1-1.0); BLOOD UREA NITROGEN 16 MG/DL (7-18); BUN/CREATININE RATIO 16.8 (6.6-38.0); CHLORIDE 110 MMOL/L (99-107); CREATININE 0.95 MG/DL (0.40-0.90); GLUCOSE 101 MG/DL (70-104); LIPASE < 50 U/L (73-393); MAGNESIUM 2.2 MG/DL (1.5-2.4); PHOSPHORUS 2.5 MG/DL (2.3-4.5); POTASSIUM 4.4 MMOL/L (3.5-5.1); SODIUM 144 MMOL/L (135-145); TOTAL CARBON DIOXIDE 27.6 MMOL/L (24-32); TOTAL PROTEIN 4.9 G/DL (6.4-8.2); eGFR 56 ML/MIN
--- NOTE | 2020-10-04 06:27 | NUR ---
Patient in room ORTHO 4009. I have received report from Virginia RN and had the opportunity to ask questions and assume patient care.
[2020-10-04 07:04] LABS: ANISOCYTOSIS 2+; PLATELET ESTIMATE NORMAL; POLYCHROMASIA FEW; TEAR DROP CELLS 1+
[2020-10-04 07:05] LABS: STOMATOCYTES FEW
[2020-10-04] MEDS: pantoprazole 40mg Tablet.DR PO SCH (07:39)
[2020-10-04] MEDS: ferrous sulfate 325mg tablet PO SCH (07:40)
[2020-10-04] MEDS: folic acid 1mg tablet PO SCH (07:40)
[2020-10-04] MEDS: multivitamins, therapeutics tablet PO SCH (07:40)
[2020-10-04] MEDS: thiamine 100mg tablet PO SCH (07:40)
[2020-10-04] MEDS: gabapentin 400mg capsule PO SCH (07:40)
[2020-10-04] MEDS: docusate sod 100mg capsule PO SCH ×2 (07:40→19:40)
[2020-10-04] MEDS: amiodarone 200mg tablet PO SCH (07:41)
[2020-10-04] MEDS: nitroGLYCERIN 0.1mg/hour patch TD SCH (07:41)
[2020-10-04] MEDS: K and/or MAG REPLACEMENT MC SCH ×2 (08:00→20:00)
[2020-10-04 10:00] VITALS: BP 141/51
[2020-10-04] MEDS ORDERED: furosemide 40mg/4ml inj IV ONE (10:30)
[2020-10-04 18:20] VITALS: BP 153/55
--- NOTE | 2020-10-04 18:35 | NUR ---
Problems reprioritized. Patient report given, questions answered & plan of care reviewed with Uday MCKEON.
[2020-10-04] MEDS: enoxaparin 40mg/0.4ml syringe SQ SCH (19:40)
[2020-10-04] MEDS: ALPRAZolam 0.25mg tablet PO PRN (19:40)
[2020-10-04] MEDS: atorvastatin 20mg tablet PO SCH (19:42)
[2020-10-04] MEDS: metoprolol succinate 25mg (24-HOUR) SR. Tablet PO SCH (19:43)
[2020-10-04] MEDS ORDERED: LORazepam 1 MG tablet PO PRN (21:45)
[2020-10-04] MEDS ORDERED: LORazepam 2 mg/ml vial IV PRN (21:45)
[2020-10-04 22:00] VITALS: BP 151/49
[2020-10-05] MEDS: diphenhydrAMINE 25mg capsule PO PRN ×2 (05:04→19:47)
[2020-10-05] MEDS: HYDROcodone/acetaminophen 10/325mg tab PO PRN ×2 (05:04→19:48)
--- NOTE | 2020-10-05 05:59 | NUR ---
reported to days. noted pt resting. encouraged to work hard with PT and not to "refuse" PT. verbalized understanding.
[2020-10-05 06:00] VITALS: BP 165/57
--- NOTE | 2020-10-05 06:16 | NUR ---
Patient in room ORTHO 4009. I have received report from rufina james and had the opportunity to ask questions and assume patient care.
[2020-10-05 06:45] LABS: BASOPHILS # (AUTO) 0.1 X10'3 (0-0.2); BASOPHILS % (AUTO) 0.8 % (0-1); EOSINOPHILS # (AUTO) 0.1 X10'3 (0-0.9); EOSINOPHILS % (AUTO) 1.4 % (0-6); HEMATOCRIT 27.6 % (35.0-45.0); LYMPHOCYTES # (AUTO) 0.3 X10'3 (1.1-4.8); MEAN CORPUSCULAR HEMOGLOBIN 30.9 PG (27.0-31.0); MEAN CORPUSCULAR HGB CONC 32.8 g/dL (33.0-36.5); MEAN CORPUSCULAR VOLUME 94.2 FL (78-98); MEAN PLATELET VOLUME 7.8 FL (7.4-10.4); MONOCYTES # (AUTO) 0.8 X10'3 (0-0.9); MONOCYTES % (AUTO) 11.5 % (2-12); NEUTROPHILS # (AUTO) 5.6 X10'3 (1.8-7.7); NEUTROPHILS % (AUTO) 81.3 % (42-75); PLATELET COUNT 279 X10'3 (140-440); RED BLOOD COUNT 2.93 X10'6 (4.20-5.60); RED CELL DISTRIBUTION WIDTH 18.5 % (11.5-14.5); WHITE BLOOD COUNT 6.8 X10'3 (4.5-11.0)
[2020-10-05 07:06] LABS: ALANINE AMINOTRANSFERASE 18 U/L (12-78); ALBUMIN 1.8 G/DL (3.4-5.0); ALBUMIN/GLOBULIN RATIO 0.5 (1.1-1.5); ALKALINE PHOSPHATASE 96 IU/L (46-116); AMYLASE 19 U/L (25-115); ANION GAP 5 (8-16); ASPARTATE AMINO TRANSFERASE 16 U/L (10-37); BILIRUBIN,TOTAL 0.5 MG/DL (0.1-1.0); BLOOD UREA NITROGEN 12 MG/DL (7-18); BUN/CREATININE RATIO 14.5 (6.6-38.0); CALCIUM 8.2 MG/DL (8.5-10.1); CHLORIDE 108 MMOL/L (99-107); CREATININE 0.83 MG/DL (0.40-0.90); GLUCOSE 108 MG/DL (70-104); PHOSPHORUS 2.7 MG/DL (2.3-4.5); POTASSIUM 3.8 MMOL/L (3.5-5.1); SODIUM 141 MMOL/L (135-145); TOTAL CARBON DIOXIDE 27.6 MMOL/L (24-32); TOTAL PROTEIN 5.1 G/DL (6.4-8.2); eGFR 66 ML/MIN
[2020-10-05 07:08] LABS: LIPASE < 50 U/L (73-393)
[2020-10-05] MEDS: K and/or MAG REPLACEMENT MC SCH ×2 (08:00→19:55)
[2020-10-05] MEDS: folic acid 1mg tablet PO SCH (08:08)
[2020-10-05] MEDS: ferrous sulfate 325mg tablet PO SCH (08:09)
[2020-10-05] MEDS: pantoprazole 40mg Tablet.DR PO SCH (08:09)
[2020-10-05] MEDS: multivitamins, therapeutics tablet PO SCH (08:09)
[2020-10-05] MEDS: gabapentin 400mg capsule PO SCH (08:09)
[2020-10-05] MEDS: thiamine 100mg tablet PO SCH (08:09)
[2020-10-05] MEDS: docusate sod 100mg capsule PO SCH ×2 (08:09→19:47)
[2020-10-05] MEDS: amiodarone 200mg tablet PO SCH (08:10)
[2020-10-05] MEDS: nitroGLYCERIN 0.1mg/hour patch TD SCH (08:10)
[2020-10-05 10:00] VITALS: BP 150/50
--- NOTE | 2020-10-05 11:35 | NUR ---
Page Sent PAGER ID: [phone] MESSAGE: [phone] Serina, pt has home inhaler trelegy. pharmacy needs it ot be discontinued pt is unable to bring med in. may I discontinue? andre [phone]
--- NOTE | 2020-10-05 13:41 | NUR ---
Page Sent PAGER ID: [phone] MESSAGE: [phone] Serina. pt hasn't had a bowel movement since the 10/01. can I order milk of mag. also she hasn't been on her Plavix since surgery 10/02. andre [phone]
[2020-10-05] MEDS ORDERED: magnesium hydroxide 30ml (MOM) UD suspension PO PRN (14:20)
[2020-10-05] MEDS: clopidogrel 75mg tablet PO SCH (14:31)
--- NOTE | 2020-10-05 16:18 | NUR ---
Initial: Pt admit DX L hip fx s/p fall, chronic alcoholism, and HTN per EMR. Pt PO 25% meals since lunch 10/03 w/ 0% prior intake this admit though was NPO for OR 10/02 per EMR. Not meeting needs. Pt seen by RD; pt reports not real food preferences at this time simply decreased appetite r/t pain though is drinking liquids. RD recommends Ensure Enlive TIDWM for additional protein/kcals post-op; MD notified. Noted LBM 09/30 5 days constipation likely also impacting PO intake; receiving routine colace and PRN MoM this AM. Pt reports does not feel discomfort but knows she will need "to go" in the future. Pt declines prune juice or foods to assist w/ BM at this time. RD encouraged pt to report food preferences this admit to optimize PO intake and recovery. Receiving routine thiamin, folic, MVI for etoh hx. Will continue to monitor for additional protein/kcal needs this admit. Rec: 1. liberalize to regular diet given age/PO hx; encourage PO 2. Ensure Enlive TIDWM for additional protein/kcals; pending MD verification in EMR 3. routine bowel care; 5 days constipation 4. weekly scaled wts Addendum: 10/05/20 at [address] Amended: Links added.
[2020-10-05 18:00] VITALS: BP 142/76
[2020-10-05] MEDS ORDERED: lactose-reduced food (Ensure Enlive) - 237ml bottle PO SCH (18:00)
--- NOTE | 2020-10-05 18:38 | NUR ---
Problems reprioritized. Patient report given, questions answered & plan of care reviewed with Harshad james.
[2020-10-05] MEDS: enoxaparin 40mg/0.4ml syringe SQ SCH (19:46)
[2020-10-05] MEDS: atorvastatin 20mg tablet PO SCH (19:47)
[2020-10-05] MEDS: metoprolol succinate 25mg (24-HOUR) SR. Tablet PO SCH (19:47)
--- NOTE | 2020-10-05 21:06 | NUR ---
Dr. Pike at this time re pt inhalers she is asking about.
[2020-10-05 22:00] VITALS: BP 130/57
[2020-10-05] MEDS: ALPRAZolam 0.25mg tablet PO PRN (22:08)
[2020-10-05] MEDS: ipratropium/albuterol 3ml nebule NEB PRN (23:57)
[2020-10-06] MEDS: diphenhydrAMINE 25mg capsule PO PRN (04:36)
[2020-10-06] MEDS: HYDROcodone/acetaminophen 10/325mg tab PO PRN ×3 (04:36→15:27)
--- NOTE | 2020-10-06 04:50 | NUR ---
attempted to void on bedpan. unable. pt states "I don't have the breath to try to get up right now. it stole all my breath last time" re-scanned bladder and found 325ml. will continue to monitor.
[2020-10-06] MEDS: ipratropium/albuterol 3ml nebule NEB PRN (05:16)
[2020-10-06 06:00] VITALS: BP 127/50
--- NOTE | 2020-10-06 06:15 | NUR ---
received report from jacob rivera
[2020-10-06] MEDS: K and/or MAG REPLACEMENT MC SCH (08:00)
[2020-10-06] MEDS: gabapentin 400mg capsule PO SCH (08:18)
[2020-10-06] MEDS: thiamine 100mg tablet PO SCH (08:18)
[2020-10-06] MEDS: clopidogrel 75mg tablet PO SCH (08:18)
[2020-10-06] MEDS: multivitamins, therapeutics tablet PO SCH (08:18)
[2020-10-06] MEDS: ferrous sulfate 325mg tablet PO SCH (08:19)
[2020-10-06] MEDS: amiodarone 200mg tablet PO SCH (08:19)
[2020-10-06] MEDS: folic acid 1mg tablet PO SCH (08:20)
[2020-10-06] MEDS: docusate sod 100mg capsule PO SCH (08:20)
[2020-10-06] MEDS: pantoprazole 40mg Tablet.DR PO SCH (08:21)
[2020-10-06] MEDS: nitroGLYCERIN 0.1mg/hour patch TD SCH (08:29)
[2020-10-06] MEDS ORDERED: IPRA3AMP9 NEB (09:47)
--- NOTE | 2020-10-06 16:00 | NUR ---
pt d/c on [place] with all belongings accompanied by [facility] personnel to go to [facility]
== END 2020-10-06 15:45 | DRG 481 ==
LOC: ER 20:22 → ED HOLD 21:47 → ORTHO 4S 10-01 07:32
PROVIDERS: ADMIT Family Medicine; ATTEND Family Medicine
PROC: 0QH736Z Insertion of Intramedullary Internal Fixation Device into Left Upper Femur, Percutaneous Approach (ICD-10-PCS; principal; 2020-10-02 13:48)
PROC: 30233N1 Transfusion of Nonautologous Red Blood Cells into Peripheral Vein, Percutaneous Approach (ICD-10-PCS; 2020-10-03)
DX: S72.142A Displaced intertrochanteric fracture of left femur, initial encounter for closed fracture (principal); D62 Acute posthemorrhagic anemia; J44.9 Chronic obstructive pulmonary disease, unspecified; I73.9 Peripheral vascular disease, unspecified; I48.0 Paroxysmal atrial fibrillation; I35.0 Nonrheumatic aortic (valve) stenosis; E78.00 Pure hypercholesterolemia, unspecified; E78.5 Hyperlipidemia, unspecified; F10.229 Alcohol dependence with intoxication, unspecified; D50.9 Iron deficiency anemia, unspecified; F41.9 Anxiety disorder, unspecified; I11.0 Hypertensive heart disease with heart failure; W01.0XXA Fall on same level from slipping, tripping and stumbling without subsequent striking against object, initial encounter; Z20.822 Contact with and (suspected) exposure to COVID-19; Z96.611 Presence of right artificial shoulder joint; G62.9 Polyneuropathy, unspecified; Z60.2 Problems related to living alone; G89.29 Other chronic pain; K21.9 Gastro-esophageal reflux disease without esophagitis; M19.90 Unspecified osteoarthritis, unspecified site; R68.2 Dry mouth, unspecified; I25.10 Atherosclerotic heart disease of native coronary artery without angina pectoris; I50.9 Heart failure, unspecified; Z79.02 Long term (current) use of antithrombotics/antiplatelets; Z87.891 Personal history of nicotine dependence; Z90.710 Acquired absence of both cervix and uterus; Y93.89 Activity, other specified; Y92.090 Kitchen in other non-institutional residence as the place of occurrence of the external cause; Y99.8 Other external cause status; Z88.0 Allergy status to penicillin; Z88.2 Allergy status to sulfonamides; Z88.8 Allergy status to other drugs, medicaments and biological substances; Z79.899 Other long term (current) drug therapy; Z82.49 Family history of ischemic heart disease and other diseases of the circulatory system
CPT/HCPCS: 36415; 36430; 70450; 71045; 72125; 73502; 73600; 76000; 80053; 80320; 81003; 82150; 82948; 83690; 83735; 84100; 84484; 85008; 85025; 85610; 86885; 86900; 86901; 86920; 87081; 87635; 93005; 94640; 94760; 97110; 97162; 97530; 99285; A4215; A4618; A6449; A7000; C1713; C9399; G0378; J0131; J1650; J1940; J2001; J2270; J2405; J2704; J3010; J3490; J7030; J7120; P9016; Q0163

== ENCOUNTER 2022-07-11 13:06 | Inpatient (IN) | payer MEDICARE ==
[~2022-07-11] VITALS: Ht 160 cm; Wt 60.0 kg
[~2022-07-11 13:06] MED LIST changes: +ALB0.5UD IH; +ATR0.5NEB IH; -FERR325T28 PO; +FURO-150 PO; -FURO40TA4 PO; -GABA-534 PO; +IPRA3AMP9 NEB; +PREG150C46 PO; +SENN1TAB33 PO; -ZOC40T PO
--- NOTE | 2022-07-11 13:50 | NUR ---
sbar pt condition to DR BURRIS recieved verbal order for x ray of hip and femur.
--- NOTE | 2022-07-11 14:08 | NUR ---
pt requesting bedpan, due to potiental hip fx, purewick was placed.
[2022-07-11 15:41] LABS: BASOPHILS % (AUTO) 0.2 % (0-1); EOSINOPHILS % (AUTO) 0 % (0-6); HEMATOCRIT 28.5 % (35.0-45.0); HEMOGLOBIN 8.8 g/dl (12.0-16.0); LYMPHOCYTES # (AUTO) 0.2 X10'3 (1.1-4.8); LYMPHOCYTES % (AUTO) 1.3 % (21-51); MEAN CORPUSCULAR HEMOGLOBIN 23.9 PG (27.0-31.0); MEAN CORPUSCULAR HGB CONC 30.7 g/dL (33.0-36.5); MEAN CORPUSCULAR VOLUME 77.8 FL (78-98); MEAN PLATELET VOLUME 9.8 FL (7.4-10.4); MONOCYTES # (AUTO) 0.3 X10'3 (0-0.9); MONOCYTES % (AUTO) 2.4 % (2-12); NEUTROPHILS # (AUTO) 11.4 X10'3 (1.8-7.7); NEUTROPHILS % (AUTO) 96.1 % (42-75); PLATELET COUNT 280 X10'3 (140-440); RED BLOOD COUNT 3.66 X10'6 (4.20-5.60); WHITE BLOOD COUNT 11.9 X10'3 (4.5-11.0)
[2022-07-11 16:00] LABS: ALANINE AMINOTRANSFERASE 32 U/L (12-78); ALBUMIN 2.8 G/DL (3.4-5.0); ALBUMIN/GLOBULIN RATIO 0.8 (1.1-1.5); ALKALINE PHOSPHATASE 58 IU/L (46-116); ANION GAP 4 (8-16); ASPARTATE AMINO TRANSFERASE 17 U/L (10-37); BILIRUBIN,TOTAL 0.3 MG/DL (0.1-1.0); BLOOD UREA NITROGEN 37 MG/DL (7-18); BUN/CREATININE RATIO 28.2 (10.0-20.0); CALCIUM 8.8 MG/DL (8.5-10.1); CHLORIDE 106 MMOL/L (99-107); CREATININE 1.31 MG/DL (0.40-0.90); GLUCOSE 107 MG/DL (70-104); POTASSIUM 4.1 MMOL/L (3.5-5.1); SODIUM 142 MMOL/L (135-145); TOTAL PROTEIN 6.1 G/DL (6.4-8.2); eGFR 39 ML/MIN
[2022-07-11 16:09] LABS: CLARITY,URINE SLIGHTLY CLOUDY (Clear); COLOR,URINE STRAW (Yellow); GLUCOSE, URINE NEGATIVE (Neg); KETONES,URINE NEGATIVE (Neg); LEUKOCYTE ESTERASE ,URINE TRACE (Neg); NITRITES, URINE POSITIVE (Neg); OCCULT BLOOD,URINE NEGATIVE (Neg); PROTEIN,URINE NEGATIVE (Neg); UA COLLECTION TYPE CLN CATCH MIDSTREAM; UROBILINOGEN,URINE 0.2 E.U/dL (0.2-1.0)
[2022-07-11 16:22] LABS: PLATELET ESTIMATE NORMAL
[2022-07-11 16:23] LABS: ANISOCYTOSIS 2+; MICROCYTOSIS 1+; POIKILOCYTOSIS 1+
[2022-07-11 17:00] LABS: BACTERIA,URINE 2+ /HPF (Neg); RBC,URINE NONE SEEN /HPF (0-2); SQUAMOUS EPITHELIAL CELL,UR NONE SEEN /LPF (FEW); WBC,URINE 0-4 /HPF (0-4)
[2022-07-11] MEDS ORDERED: levoFLOXACIN-Levaquin 500mg/D5 100 ML IV ONE (17:20)
[2022-07-11] MEDS ORDERED: METO-395 PO (17:32)
[2022-07-11] MEDS ORDERED: TRAM50TA2 PO (17:32)
[2022-07-11] MEDS ORDERED: PRED10TA PO (17:36)
[2022-07-11] MEDS ORDERED: OMEP20CA16 PO (17:36)
[2022-07-11] MEDS ORDERED: NITR1PAT25 TD (17:36)
[2022-07-11] MEDS ORDERED: SIMV-45 PO (17:36)
[2022-07-11] MEDS ORDERED: PREG150C PO (17:36)
[2022-07-11] MEDS ORDERED: morphine 4 MG/ML inj SYRINge IV ONE (17:55)
[2022-07-11] MEDS ORDERED: ondansetron/PF 4mg/2ml inj IV ONE (17:55)
[2022-07-11] MEDS ORDERED: ondansetron/PF 4mg/2ml inj IV PRN (18:10)
[2022-07-11] MEDS ORDERED: morphine 2 MG/ML inj. syringe IV PRN (18:10)
[2022-07-11] MEDS ORDERED: potassium Cl 40MEQ/1/2NS 520ml 520 ML IV PRN (18:10)
[2022-07-11] MEDS ORDERED: magnesium 2GM in 50ml NS 50 ML IV PRN (18:10)
[2022-07-11] MEDS ORDERED: magnesium 4gm in 100ml NS 100 ML IV PRN (18:10)
[2022-07-11] MEDS ORDERED: potassium Cl 20 mEq SR tablet PO PRN ×2 (18:10)
[2022-07-11] MEDS ORDERED: PERFLUTREN PROTEIN-A MICROSPHR (Optison) 0.22 MG/ML 3ML VIAL IV ONE (18:30)
[2022-07-11] MEDS: K and/or MAG REPLACEMENT MC SCH (20:00)
[2022-07-11] MEDS: ALPRAZolam 0.5mg tablet PO SCH (20:31)
[2022-07-11] MEDS: clindamycin 600mg/D5W 50ml 50 ML IV SCH (20:33)
[2022-07-11] MEDS: pregabalin 75mg capsule PO SCH (20:33)
[2022-07-11] MEDS: docusate sod 100mg capsule PO SCH (20:34)
[2022-07-11] MEDS: atorvastatin 20mg tablet PO SCH (20:34)
[2022-07-11] MEDS: prednisone 10mg tablet PO SCH (20:34)
[2022-07-11] MEDS: furosemide 20 MG/2 ML vial IV SCH (20:34)
[2022-07-11] MEDS: morphine 2 MG/ML inj. syringe IV PRN (22:27)
[2022-07-12] MEDS: heparin, porcine 5000 units/ml vial SQ SCH ×3 (01:06→16:59)
--- NOTE | 2022-07-12 01:16 | NUR ---
PATIENT PLACED ON A ORTHO BED WITH TRAPEZE NO NEEDS AT THIS TIME
[2022-07-12] MEDS: clindamycin 600mg/D5W 50ml 50 ML IV SCH ×4 (02:21→21:07)
--- NOTE | 2022-07-12 07:05 | NUR ---
attempted report, RN will call back
[2022-07-12 07:41] LABS: BASOPHILS % (AUTO) 0.2 % (0-1); EOSINOPHILS % (AUTO) 0 % (0-6); HEMATOCRIT 23.6 % (35.0-45.0); HEMOGLOBIN 7.3 g/dl (12.0-16.0); LYMPHOCYTES # (AUTO) 0.6 X10'3 (1.1-4.8); LYMPHOCYTES % (AUTO) 5.8 % (21-51); MEAN CORPUSCULAR HEMOGLOBIN 24.2 PG (27.0-31.0); MEAN CORPUSCULAR HGB CONC 30.9 g/dL (33.0-36.5); MEAN CORPUSCULAR VOLUME 78.3 FL (78-98); MEAN PLATELET VOLUME 9.7 FL (7.4-10.4); MONOCYTES # (AUTO) 0.7 X10'3 (0-0.9); MONOCYTES % (AUTO) 6.8 % (2-12); NEUTROPHILS # (AUTO) 8.7 X10'3 (1.8-7.7); NEUTROPHILS % (AUTO) 87.2 % (42-75); PLATELET COUNT 234 X10'3 (140-440); RED BLOOD COUNT 3.02 X10'6 (4.20-5.60); RED CELL DISTRIBUTION WIDTH 18.6 % (11.5-14.5)
[2022-07-12 07:45] VITALS: BP 119/49
[2022-07-12] MEDS: Fluticasone/Umeclidin/Vilanter (Trelegy Ellipta 100-62.5-25) IH SCH (08:00)
[2022-07-12] MEDS ORDERED: docusate sod 100mg capsule PO SCH (08:00)
[2022-07-12] MEDS ORDERED: metoprolol succinate 25mg (24-HOUR) SR. Tablet PO SCH (08:00)
[2022-07-12] MEDS: prednisone 10mg tablet PO SCH ×2 (08:00→21:09)
[2022-07-12 08:05] LABS: ALANINE AMINOTRANSFERASE 25 U/L (12-78); ALBUMIN 2.3 G/DL (3.4-5.0); ALBUMIN/GLOBULIN RATIO 0.8 (1.1-1.5); ALKALINE PHOSPHATASE 58 IU/L (46-116); ANION GAP 7 (8-16); ASPARTATE AMINO TRANSFERASE 15 U/L (10-37); BILIRUBIN,TOTAL 0.3 MG/DL (0.1-1.0); BLOOD UREA NITROGEN 39 MG/DL (7-18); BUN/CREATININE RATIO 26.5 (10.0-20.0); CALCIUM 8.7 MG/DL (8.5-10.1); CHLORIDE 106 MMOL/L (99-107); CREATININE 1.47 MG/DL (0.40-0.90); GLUCOSE 107 MG/DL (70-104); MAGNESIUM 2.3 MG/DL (1.5-2.4); POTASSIUM 4.2 MMOL/L (3.5-5.1); SODIUM 142 MMOL/L (135-145); TOTAL CARBON DIOXIDE 29.3 MMOL/L (24-32); TOTAL PROTEIN 5.2 G/DL (6.4-8.2); eGFR 34 ML/MIN
[2022-07-12 09:10] LABS: APTT 24 SECONDS (22-32)
[2022-07-12] MEDS: albuterol 2.5 MG/3 ML nebule NEB SCH (09:11)
[2022-07-12] MEDS: ipratropium 0.5 MG/2.5ML nebule IH SCH (09:11)
--- NOTE | 2022-07-12 09:15 | NUR ---
Echo at bedside
[2022-07-12] MEDS: docusate sod 100mg capsule PO SCH ×2 (09:49→21:10)
[2022-07-12] MEDS: pantoprazole 40mg Tablet.DR PO SCH (09:49)
[2022-07-12] MEDS: amiodarone 200mg tablet PO SCH (09:50)
[2022-07-12] MEDS: pregabalin 75mg capsule PO SCH ×2 (09:50→21:09)
[2022-07-12] MEDS: nitroGLYCERIN 0.1mg/hour patch TD SCH (09:52)
[2022-07-12] MEDS: furosemide 20 MG/2 ML vial IV SCH ×2 (09:53→20:00)
[2022-07-12 10:00] VITALS: BP 110/36
[2022-07-12] MEDS: morphine 2 MG/ML inj. syringe IV PRN (10:02)
[2022-07-12] MEDS: K and/or MAG REPLACEMENT MC SCH ×2 (10:10→20:00)
--- NOTE | 2022-07-12 13:30 | NUR ---
WOUND INFECTION EDUCATION PROVIDED BY WOUND CARE 1. Patient instructed to call their primary doctor, or go the ED immediately if any of the following symptoms occur: * Increased pain in wound * Increase in drainage from the wound * Redness in the skin surrounding the wound * Warmth in the skin surrounding the wound * Bleeding from the wound * Temperature of 101 or greater 2. If any of these occur while in the hospital tell a nurse immediately. Addendum: 07/12/22 at 1330 by Vera Prado RN Amended: Links added.
[2022-07-12 18:00] VITALS: BP 88/41
--- NOTE | 2022-07-12 18:34 | NUR ---
Report to Sherri MCKEON
[2022-07-12 20:20] VITALS: BP 79/35
[2022-07-12] MEDS: ALPRAZolam 0.5mg tablet PO SCH (21:00)
[2022-07-12] MEDS: atorvastatin 20mg tablet PO SCH (21:09)
[2022-07-12 22:00] VITALS: BP 92/47
--- NOTE | 2022-07-12 23:53 | NUR ---
BLADDER SCAN [id number]. Addendum: 07/13/22 at 0017 by Sherri Mcdonald RN WRONG PATIENT.
[2022-07-13] VITALS (24 sets, daily range): BP systolic 97–152; BP diastolic 37–77
[2022-07-13] MEDS: clindamycin 600mg/D5W 50ml 50 ML IV SCH ×4 (01:22→19:27)
--- NOTE | 2022-07-13 06:10 | NUR ---
Problems reprioritized. Patient report given, questions answered & plan of care reviewed with jacob Mckeon.
[2022-07-13 06:17] LABS: ALANINE AMINOTRANSFERASE 26 U/L (12-78); ALBUMIN 1.9 G/DL (3.4-5.0); ALBUMIN/GLOBULIN RATIO 0.7 (1.1-1.5); ALKALINE PHOSPHATASE 51 IU/L (46-116); ANION GAP 7 (8-16); ASPARTATE AMINO TRANSFERASE 28 U/L (10-37); BILIRUBIN,TOTAL 0.3 MG/DL (0.1-1.0); BLOOD UREA NITROGEN 40 MG/DL (7-18); BUN/CREATININE RATIO 23.7 (10.0-20.0); CALCIUM 8.1 MG/DL (8.5-10.1); CHLORIDE 105 MMOL/L (99-107); CREATININE 1.69 MG/DL (0.40-0.90); GLUCOSE 131 MG/DL (70-104); MAGNESIUM 2.3 MG/DL (1.5-2.4); POTASSIUM 3.9 MMOL/L (3.5-5.1); SODIUM 140 MMOL/L (135-145); TOTAL CARBON DIOXIDE 28.2 MMOL/L (24-32); TOTAL PROTEIN 4.7 G/DL (6.4-8.2); eGFR 29 ML/MIN
[2022-07-13 06:35] LABS: BASOPHILS % (AUTO) 0.1 % (0-1); EOSINOPHILS % (AUTO) 0 % (0-6); LYMPHOCYTES # (AUTO) 0.2 X10'3 (1.1-4.8); MEAN CORPUSCULAR HEMOGLOBIN 24.2 PG (27.0-31.0); MEAN CORPUSCULAR HGB CONC 31.1 g/dL (33.0-36.5); MEAN CORPUSCULAR VOLUME 77.7 FL (78-98); MEAN PLATELET VOLUME 9.8 FL (7.4-10.4); MONOCYTES # (AUTO) 0.5 X10'3 (0-0.9); MONOCYTES % (AUTO) 4.6 % (2-12); NEUTROPHILS # (AUTO) 11.1 X10'3 (1.8-7.7); NEUTROPHILS % (AUTO) 93.3 % (42-75); PLATELET COUNT 190 X10'3 (140-440); RED BLOOD COUNT 2.46 X10'6 (4.20-5.60); WHITE BLOOD COUNT 11.9 X10'3 (4.5-11.0)
[2022-07-13 06:41] LABS: HEMATOCRIT 19.2 % (35.0-45.0)
--- NOTE | 2022-07-13 06:44 | NUR ---
Notified primary nurse Linda of critical hgb of 6.0 and hct of 19.2.
[2022-07-13] MEDS: ipratropium 0.5 MG/2.5ML nebule IH SCH (07:54)
[2022-07-13] MEDS: albuterol 2.5 MG/3 ML nebule NEB SCH (07:54)
[2022-07-13] MEDS: Fluticasone/Umeclidin/Vilanter (Trelegy Ellipta 100-62.5-25) IH SCH (08:00)
[2022-07-13] MEDS: docusate sod 100mg capsule PO SCH ×3 (08:00→19:45)
[2022-07-13] MEDS: nitroGLYCERIN 0.1mg/hour patch TD SCH (08:00)
[2022-07-13] MEDS: pregabalin 75mg capsule PO SCH ×2 (08:00→19:44)
[2022-07-13] MEDS: heparin, porcine 5000 units/ml vial SQ SCH ×3 (08:00→16:00)
[2022-07-13] MEDS: amiodarone 200mg tablet PO SCH (08:00)
[2022-07-13] MEDS: prednisone 10mg tablet PO SCH ×2 (08:00→19:45)
[2022-07-13] MEDS: pantoprazole 40mg Tablet.DR PO SCH (09:23)
[2022-07-13] MEDS: furosemide 20 MG/2 ML vial IV SCH ×3 (09:36→19:44)
--- NOTE | 2022-07-13 12:25 | NUR ---
KATIE Lopez, spoke to Dr. Baca. She stated that the hospitalist is to remain on the case through and after surgery.
[2022-07-13] MEDS ORDERED: metoprolol succinate 25mg (24-HOUR) SR. Tablet PO SCH (13:36)
--- NOTE | 2022-07-13 14:16 | NUR ---
2nd unit prbc handed off to Avni Kovacs RN in RR/preop. To be transfused now.
[2022-07-13 14:28] LABS: HEMOGLOBIN 7.8 g/dl (12.0-16.0); MEAN CORPUSCULAR HEMOGLOBIN 24.3 PG (27.0-31.0); MEAN CORPUSCULAR HGB CONC 31.1 g/dL (33.0-36.5); MEAN CORPUSCULAR VOLUME 78.3 FL (78-98); MEAN PLATELET VOLUME 9.4 FL (7.4-10.4); PLATELET COUNT 198 X10'3 (140-440); RED BLOOD COUNT 3.19 X10'6 (4.20-5.60); RED CELL DISTRIBUTION WIDTH 18.2 % (11.5-14.5); WHITE BLOOD COUNT 11.7 X10'3 (4.5-11.0)
[2022-07-13] MEDS ORDERED: HYDROmorphone/PF 0.2 MG/ML SYRINGE IV PRN (14:40)
[2022-07-13] MEDS ORDERED: ondansetron/PF 4mg/2ml inj IV PRN (14:40)
[2022-07-13] MEDS ORDERED: labetalol 20mg/4ml (5mg/ml) syringe IV PRN (14:40)
[2022-07-13] MEDS ORDERED: acetaminophen 1,000mg/100ml IV 100 ML IV PRN (14:40)
[2022-07-13] MEDS ORDERED: morphine 2 MG/ML inj. syringe IV PRN (14:40)
[2022-07-13] MEDS ORDERED: ringers solution, lacted 1,000 ML IV SCH (14:40)
[2022-07-13] MEDS ORDERED: proCHLORperazine 10 MG/2 ml inj IV PRN (14:40)
[2022-07-13] MEDS ORDERED: hydrALAZINE 20mg/ml inj. IV PRN (14:40)
[2022-07-13] MEDS ORDERED: sevoflurane 250ml liquid IH ONE (14:44)
--- NOTE | 2022-07-13 14:48 | NUR ---
PATIENT TAKEN TO THE OR VIA BED WITH MIKE CHENG FOLLOWING 20 MINUTES OF START OF BLOOD. Addendum: 07/13/22 at 1456 by Guillermo Dejesus RN, RN Amended: Links added.
[2022-07-13] MEDS ORDERED: fentaNYL/PF 50MCG/1 ML 2ML syringe ONE (14:50)
[2022-07-13] MEDS ORDERED: LIDOcaine 1%/PF 5ML 10 MG/ML VIAL ONE (15:15)
[2022-07-13] MEDS ORDERED: dexamethasone sod phosphate 4mg/ml inj. ONE (15:15)
[2022-07-13] MEDS ORDERED: BUPIVAcaine 0.5% inj/PF 30 ML ONE (15:15)
[2022-07-13] MEDS ORDERED: propofol inj 20 ML IV ONE (15:15)
[2022-07-13] MEDS ORDERED: ondansetron/PF 4mg/2ml inj ONE (15:15)
[2022-07-13] MEDS ORDERED: BUPIVAcaine 0.5% inj/PF 30 ml vial IJ ONE (15:37)
[2022-07-13] MEDS ORDERED: ondansetron 4mg rapidly disintigrating tab PO PRN (15:50)
[2022-07-13] MEDS ORDERED: meperidine/PF 25mg/ml syringe ONE (16:03)
--- NOTE | 2022-07-13 16:05 | NUR ---
Received from OR via BED, accompanied by Anesthesiologist and report given by Anesthesiologist. PATIENT WAKING UP, NO S/S OF PAIN, V/S WNL, CSM INTACT, SCD ON, PIV TO LUE,DRESSING TO LEFT LATERAL KNEE CDI WITH IMMOBILIZER ON. F/C DRAINING CLEAR YELLOW URINE.
--- NOTE | 2022-07-13 16:13 | NUR ---
Received from OR via BED, accompanied by Anesthesiologist and report given by Anesthesiologist. PATIENT WAKING UP, NO S/S OF PAIN, V/S WNL, CSM INTACT, SCD ON, PIV TO LUE,DRESSING TO LEFT LATERAL KNEE CDI WITH IMMOBILIZER ON. F/C DRAINING CLEAR YELLOW URINE. Addendum: 07/13/22 at 1619 by Juan José Moulton RN WRONG TIME
--- NOTE | 2022-07-13 16:55 | NUR ---
PATIENT A&OX4, DENIES PAIN, V/S WNL, CSM INTACT, SCD ON, PIV TO LUE,DRESSING TO LEFT LATERAL KNEE CDI WITH IMMOBILIZER ON. F/C DRAINING CLEAR YELLOW URINE. PATIENT TAKEN TO ORTHO AND HOOKED UP TO MONITORS IN ROOM AND REPORT GIVEN TO MEGA MCKEON WHO HAS TAKEN OVER PATIENT CAre,.
--- NOTE | 2022-07-13 18:44 | NUR ---
Report to Gemma MCKEON
[2022-07-13] MEDS: K and/or MAG REPLACEMENT MC SCH ×2 (19:29→19:45)
[2022-07-13] MEDS: ALPRAZolam 0.5mg tablet PO SCH (19:44)
[2022-07-13] MEDS: atorvastatin 20mg tablet PO SCH (19:45)
[2022-07-13] MEDS: acetaminophen 325mg tablet PO PRN (19:45)
[2022-07-13] MEDS ORDERED: clindamycin 150mg capsule PO SCH (20:00)
[2022-07-14 01:42] VITALS: BP 114/46
[2022-07-14] MEDS: heparin, porcine 5000 units/ml vial SQ SCH ×4 (01:51→23:47)
[2022-07-14] MEDS: clindamycin 600mg/D5W 50ml 50 ML IV SCH ×4 (01:53→20:43)
[2022-07-14] MEDS: acetaminophen 325mg tablet PO PRN (04:18)
[2022-07-14 06:00] VITALS: BP 129/43
--- NOTE | 2022-07-14 06:46 | NUR ---
reported to days. noted pt resting w/o distress. awaiting orders for PT and weight bearing status.
--- NOTE | 2022-07-14 06:53 | NUR ---
called dr. dumont - 50% weight bearing for PT. order put in.
--- NOTE | 2022-07-14 07:01 | NUR ---
Patient in room ORTHO 4011. I have received report from MIKE Sarabia and had the opportunity to ask questions and assume patient care.
[2022-07-14 07:13] LABS: BASOPHILS % (AUTO) 0.2 % (0-1); EOSINOPHILS % (AUTO) 0 % (0-6); HEMATOCRIT 26.7 % (35.0-45.0); HEMOGLOBIN 8.8 g/dl (12.0-16.0); LYMPHOCYTES # (AUTO) 0.2 X10'3 (1.1-4.8); MEAN CORPUSCULAR HGB CONC 33.1 g/dL (33.0-36.5); MEAN CORPUSCULAR VOLUME 78.4 FL (78-98); MEAN PLATELET VOLUME 9.2 FL (7.4-10.4); MONOCYTES # (AUTO) 0.5 X10'3 (0-0.9); MONOCYTES % (AUTO) 5.7 % (2-12); NEUTROPHILS # (AUTO) 8.6 X10'3 (1.8-7.7); NEUTROPHILS % (AUTO) 92.1 % (42-75); PLATELET COUNT 159 X10'3 (140-440); RED CELL DISTRIBUTION WIDTH 17.2 % (11.5-14.5); WHITE BLOOD COUNT 9.3 X10'3 (4.5-11.0)
[2022-07-14 07:31] LABS: ALANINE AMINOTRANSFERASE 37 U/L (12-78); ALBUMIN 1.8 G/DL (3.4-5.0); ALBUMIN/GLOBULIN RATIO 0.6 (1.1-1.5); ALKALINE PHOSPHATASE 52 IU/L (46-116); ANION GAP 2 (8-16); ASPARTATE AMINO TRANSFERASE 35 U/L (10-37); BILIRUBIN,TOTAL 0.3 MG/DL (0.1-1.0); BLOOD UREA NITROGEN 35 MG/DL (7-18); BUN/CREATININE RATIO 23.5 (10.0-20.0); CALCIUM 8.4 MG/DL (8.5-10.1); CHLORIDE 107 MMOL/L (99-107); CREATININE 1.49 MG/DL (0.40-0.90); GLUCOSE 166 MG/DL (70-104); MAGNESIUM 2.2 MG/DL (1.5-2.4); POTASSIUM 4.5 MMOL/L (3.5-5.1); SODIUM 140 MMOL/L (135-145); TOTAL CARBON DIOXIDE 31.4 MMOL/L (24-32); eGFR 33 ML/MIN
[2022-07-14] MEDS: K and/or MAG REPLACEMENT MC SCH ×2 (08:00→18:54)
[2022-07-14] MEDS: Fluticasone/Umeclidin/Vilanter (Trelegy Ellipta 100-62.5-25) IH SCH (08:00)
[2022-07-14] MEDS ORDERED: metoprolol tartrate 12.5mg (1/2 tablet) PO SCH (08:04)
[2022-07-14] MEDS: amiodarone 200mg tablet PO SCH (08:09)
[2022-07-14] MEDS: pregabalin 75mg capsule PO SCH ×2 (08:10→20:42)
[2022-07-14] MEDS: furosemide 20 MG/2 ML vial IV SCH ×2 (08:11→20:42)
[2022-07-14] MEDS: prednisone 10mg tablet PO SCH ×2 (08:12→20:42)
[2022-07-14] MEDS: pantoprazole 40mg Tablet.DR PO SCH (08:12)
[2022-07-14] MEDS: nitroGLYCERIN 0.1mg/hour patch TD SCH (08:13)
[2022-07-14] MEDS: docusate sodium 100mg/10ml UD cup PO SCH ×2 (08:14→20:43)
[2022-07-14 10:00] VITALS: BP 116/39
--- NOTE | 2022-07-14 12:28 | NUR ---
PAGER ID: [phone] MESSAGE: Gloria [phone] RE: Tamika Smalls room 4011B - can we get some oral pain meds for her
[2022-07-14] MEDS: HYDROcodone/acetaminophen 5mg/325mg tablet PO PRN ×2 (15:00→21:11)
[2022-07-14] MEDS: ipratropium 0.5 MG/2.5ML nebule IH SCH (15:32)
[2022-07-14] MEDS: albuterol 2.5 MG/3 ML nebule NEB SCH (15:32)
[2022-07-14 18:00] VITALS: BP 123/41
--- NOTE | 2022-07-14 18:00 | NUR ---
Patient in room ORTHO 4011. I have received report from Gloria MCKEON and had the opportunity to ask questions and assume patient care.
--- NOTE | 2022-07-14 18:35 | NUR ---
Problems reprioritized. Patient report given, questions answered & plan of care reviewed with MIKE Riddle.
[2022-07-14] MEDS: atorvastatin 20mg tablet PO SCH (20:42)
[2022-07-14] MEDS: ALPRAZolam 0.5mg tablet PO SCH (20:42)
[2022-07-14 22:00] VITALS: BP 102/36
[2022-07-15] MEDS: clindamycin 600mg/D5W 50ml 50 ML IV SCH ×3 (01:53→13:39)
[2022-07-15 06:00] VITALS: BP 134/49
--- NOTE | 2022-07-15 06:50 | NUR ---
Patient in room ORTHO 4011. I have received report from MIKE Riddle and had the opportunity to ask questions and assume patient care.
[2022-07-15] MEDS: Fluticasone/Umeclidin/Vilanter (Trelegy Ellipta 100-62.5-25) IH SCH (08:00)
[2022-07-15] MEDS: K and/or MAG REPLACEMENT MC SCH (08:00)
[2022-07-15] MEDS: furosemide 20 MG/2 ML vial IV SCH (08:22)
[2022-07-15] MEDS: docusate sodium 100mg/10ml UD cup PO SCH (08:22)
[2022-07-15] MEDS: prednisone 10mg tablet PO SCH (08:23)
[2022-07-15] MEDS: nitroGLYCERIN 0.1mg/hour patch TD SCH (08:23)
[2022-07-15] MEDS: pantoprazole 40mg Tablet.DR PO SCH (08:23)
[2022-07-15] MEDS: pregabalin 75mg capsule PO SCH (08:24)
[2022-07-15] MEDS: amiodarone 200mg tablet PO SCH (08:24)
[2022-07-15] MEDS: heparin, porcine 5000 units/ml vial SQ SCH (08:26)
[2022-07-15 08:42] LABS: BASOPHILS % (AUTO) 0 % (0-1); EOSINOPHILS % (AUTO) 0 % (0-6); HEMATOCRIT 27.2 % (35.0-45.0); HEMOGLOBIN 8.9 g/dl (12.0-16.0); LYMPHOCYTES # (AUTO) 0.2 X10'3 (1.1-4.8); LYMPHOCYTES % (AUTO) 2.8 % (21-51); MEAN CORPUSCULAR HEMOGLOBIN 25.8 PG (27.0-31.0); MEAN CORPUSCULAR HGB CONC 32.7 g/dL (33.0-36.5); MEAN CORPUSCULAR VOLUME 79.1 FL (78-98); MEAN PLATELET VOLUME 9.5 FL (7.4-10.4); MONOCYTES # (AUTO) 0.5 X10'3 (0-0.9); MONOCYTES % (AUTO) 5.3 % (2-12); NEUTROPHILS # (AUTO) 7.9 X10'3 (1.8-7.7); NEUTROPHILS % (AUTO) 91.9 % (42-75); PLATELET COUNT 189 X10'3 (140-440); RED BLOOD COUNT 3.44 X10'6 (4.20-5.60); RED CELL DISTRIBUTION WIDTH 17.9 % (11.5-14.5); WHITE BLOOD COUNT 8.6 X10'3 (4.5-11.0)
[2022-07-15 09:05] LABS: ALANINE AMINOTRANSFERASE 38 U/L (12-78); ALBUMIN 1.9 G/DL (3.4-5.0); ALBUMIN/GLOBULIN RATIO 0.6 (1.1-1.5); ALKALINE PHOSPHATASE 53 IU/L (46-116); ANION GAP 3 (8-16); ASPARTATE AMINO TRANSFERASE 23 U/L (10-37); BILIRUBIN,TOTAL 0.3 MG/DL (0.1-1.0); BLOOD UREA NITROGEN 39 MG/DL (7-18); BUN/CREATININE RATIO 24.5 (10.0-20.0); CALCIUM 8.8 MG/DL (8.5-10.1); CHLORIDE 102 MMOL/L (99-107); CREATININE 1.59 MG/DL (0.40-0.90); GLUCOSE 131 MG/DL (70-104); MAGNESIUM 2.1 MG/DL (1.5-2.4); POTASSIUM 4.6 MMOL/L (3.5-5.1); SODIUM 137 MMOL/L (135-145); TOTAL CARBON DIOXIDE 31.6 MMOL/L (24-32); TOTAL PROTEIN 5.2 G/DL (6.4-8.2); eGFR 31 ML/MIN
[2022-07-15 10:00] VITALS: BP 123/38
[2022-07-15] MEDS: ipratropium 0.5 MG/2.5ML nebule IH SCH (11:50)
[2022-07-15] MEDS: albuterol 2.5 MG/3 ML nebule NEB SCH (11:50)
--- NOTE | 2022-07-15 14:57 | NUR ---
patient is being discharged going to [facility]. Report called to facility. PIV removed. Family noified and all belongings sent with the patient.
--- NOTE | 2022-07-15 15:17 | NUR ---
PRESSURE ULCER EDUCATION: DEFINITION: A pressure ulcer is an area of skin that breaks down when you stay in one position too long. The constant pressure against the skin reduces the blood flow to that area and the affected tissue dies. CAUSES: "Being bedridden or in a wheelchair "Fragile skin "Having a chronic condition, such as diabetes or vascular disease "Inability to move certain parts of your body without assistance "Older age "Incontinence of urine or stool SYMPTOMS: "A reddened area that DOES NOT turn white when pressed on - this can be the beginning of a pressure ulcer "A blister, deep sore or a crater - these can be advanced pressure ulcers FIRST AID: "Relieve the pressure on this area "Keep the area clean and dry "Call your primary doctor if you see any of the above symptoms "DO NOT massage the area "DO NOT use a donut shaped or ring shaped pillow- these actually interfere with the blood flow and cause complications PREVENTION: "Check for pressure ulcers everyday "Change position at least every two hours to relieve pressure "Use items that help relieve pressure- pillows, sheepskin, foam padding, and powders. "Keep skin clean and dry "Eat healthy well balanced meals "Exercise daily IF YOU SEE ANY OF THESE SYMPTOMS WHILE IN THE HOSPITAL - TELL YOUR NURSE IMMEDIATELY. IF YOU SEE ANY OF THESE SYMPTOMS WHILE AT HOME OR HAVE ANY QUESTIONS OR CONCERNS ABOUT PRESSURE ULCERS - CALL YOUR PRIMARY DOCTOR IMMEDIATELY. Addendum: 07/15/22 at 1518 by Kacy Elias LVN Amended: Links added.
== END 2022-07-15 15:15 | DRG 480 ==
LOC: ER 13:07 → ED HOLD 18:15 → EDBEDREQ 07-12 06:52 → ORTHO 4S 07-12 08:05
PROVIDERS: ADMIT Family Medicine; ATTEND Family Medicine
PROC: 30233N1 Transfusion of Nonautologous Red Blood Cells into Peripheral Vein, Percutaneous Approach (ICD-10-PCS; 2022-07-13)
PROC: 0QS904Z Reposition Left Femoral Shaft with Internal Fixation Device, Open Approach (ICD-10-PCS; principal; 2022-07-13 14:44)
DX: S72.142A Displaced intertrochanteric fracture of left femur, initial encounter for closed fracture (principal); N17.0 Acute kidney failure with tubular necrosis; D62 Acute posthemorrhagic anemia; N39.0 Urinary tract infection, site not specified; I13.0 Hypertensive heart and chronic kidney disease with heart failure and stage 1 through stage 4 chronic kidney disease, or unspecified chronic kidney disease; I50.32 Chronic diastolic (congestive) heart failure; L97.829 Non-pressure chronic ulcer of other part of left lower leg with unspecified severity; N17.9 Acute kidney failure, unspecified; M97.02XA Periprosthetic fracture around internal prosthetic left hip joint, initial encounter; Z66 Do not resuscitate; W01.0XXA Fall on same level from slipping, tripping and stumbling without subsequent striking against object, initial encounter; I35.0 Nonrheumatic aortic (valve) stenosis; E78.00 Pure hypercholesterolemia, unspecified; G89.29 Other chronic pain; I48.91 Unspecified atrial fibrillation; Z96.611 Presence of right artificial shoulder joint; F41.9 Anxiety disorder, unspecified; G62.9 Polyneuropathy, unspecified; M54.50 Low back pain, unspecified; J44.9 Chronic obstructive pulmonary disease, unspecified; N18.9 Chronic kidney disease, unspecified; Z60.2 Problems related to living alone; Z82.49 Family history of ischemic heart disease and other diseases of the circulatory system; Z83.1 Family history of other infectious and parasitic diseases; Z87.891 Personal history of nicotine dependence; Z88.0 Allergy status to penicillin; Z88.2 Allergy status to sulfonamides; Z88.1 Allergy status to other antibiotic agents; Z90.710 Acquired absence of both cervix and uterus; Z95.2 Presence of prosthetic heart valve; Y93.89 Activity, other specified; Y92.098 Other place in other non-institutional residence as the place of occurrence of the external cause; Y99.8 Other external cause status; Z88.8 Allergy status to other drugs, medicaments and biological substances; Z79.899 Other long term (current) drug therapy; Z98.49 Cataract extraction status, unspecified eye; Z79.02 Long term (current) use of antithrombotics/antiplatelets; Z79.52 Long term (current) use of systemic steroids
CPT/HCPCS: 36415; 36430; 71045; 73502; 73552; 73560; 73610; 76000; 80053; 81001; 83735; 85008; 85025; 85027; 85610; 85730; 86885; 86900; 86901; 86920; 87077; 87081; 87088; 87186; 92508; 92616; 93005; 93306; 94640; 94760; 96365; 97161; 97530; 99285; A4615; A4618; A4649; A6212; A6213; A6223; A6253; A6446; A6449; A7000; C1713; G0378; J1100; J1644; J1940; J1956; J2175; J2270; J2405; J2704; J3010; J3490; J7030; J7040; J7120; J7512; P9016; S0020